=== PATIENT | female | born 1975 | race Caucasian/White ===

== ENCOUNTER 2017-07-22 11:11 | Inpatient (IN) | payer OTHER ==
[~2017-07-22] VITALS: Ht 175.3 cm; Wt 127.0 kg
[2017-07-22 11:20] VITALS: BP 146/77
[2017-07-22] MEDS ORDERED: VITAMIN C500 M1 ORAL (11:32)
[2017-07-22] MEDS ORDERED: ZYRTEC10 MG ORAL (11:32)
[2017-07-22] MEDS ORDERED: CENTRUM COMPLE1 EAC1 PO (11:32)
[2017-07-22] MEDS ORDERED: PRILOSEC OTC20 MG ORAL (11:32)
[2017-07-22] MEDS ORDERED: TURMERIC500 MG PO (11:32)
[2017-07-22] MEDS ORDERED: MUCINEX D ER T1 EACH PO (11:32)
[2017-07-22] MEDS ORDERED: METOPROLOL TART50 M1 ORAL (11:32)
[2017-07-22] MEDS ORDERED: ALEVE220 M2 PO (11:32)
[2017-07-22] MEDS ORDERED: LOPRESSOR25 M1 ORAL (11:32)
[2017-07-22] MEDS ORDERED: Unasyn 3gm Inj ONE (11:57)
[2017-07-22] MEDS ORDERED: Ampicillin/Sulbactam Sod 3 GM in NS 110 ML IVPB ONE (12:00)
[2017-07-22 12:02] LABS: BASOPHILS % (AUTO) 0.9 % (0.0-2.0); EOSINOPHILS % (AUTO) 2.6 % (0.0-3.0); LYMPHOCYTES % (AUTO) 21.4 % (20.0-45.0); MEAN CORPUSCULAR HGB CONC 32.9 G/DL (32.0-36.0); MEAN CORPUSCULAR VOLUME 88 FL (80-99); MEAN PLATELET VOLUME 6.1 FL (6.5-10.1); MONOCYTES % (AUTO) 5.8 % (1.0-10.0); NEUTROPHILS % (AUTO) 69.4 % (45.0-75.0); PLATELET COUNT 353 K/UL (150-450); RED BLOOD COUNT 4.53 M/UL (4.20-5.40); RED CELL DISTRIBUTION WIDTH 12.6 % (11.6-14.8); WHITE BLOOD COUNT 8.8 K/UL (4.8-10.8)
[2017-07-22 12:21] LABS: ANION GAP 8 mmol/L (5-15); CALCIUM 8.8 MG/DL (8.5-10.1); CARBON DIOXIDE 26 MMOL/L (21-32); CHLORIDE 106 MMOL/L (98-107); CREATININE 0.8 MG/DL (0.55-1.30); GLOMERULAR FILTRATION RATE > 60 mL/min (>60); SODIUM 140 MMOL/L (136-145)
--- NOTE | 2017-07-22 12:24 | Emergency Room Report ---
History of Present Illness General Chief Complaint: Skin Rash/Abscess Source: Patient Present Illness HPI 42-year-old female presents ED for evaluation. Patient referred by Dr. Lloyd. Patient has extensive hidradenitis in her bilateral axilla and lower abdomen. Has had this for many years. Patient has had prior surgery without improvement. Denies any fevers or chills. Denies pain. States he is noticing significant discharge. Denies any other associated symptoms Allergies: Coded Allergies: CELECOXIB (Verified Allergy, Unknown, 07/22/17) Patient History Past Medical History: HTN Past Surgical History: none Pertinent Family History: none Social History: Denies: smoking, alcohol use, drug use Now: No Immunizations: UTD Reviewed Nursing Documentation: PMH: Agreed, PSxH: Agreed Nursing Documentation-PMH Hx Cardiac Problems: Yes Hx Hypertension: Yes Hx Seizures: No - FIBROMYAGIA Review of Systems All Other Systems: negative except mentioned in HPI Physical Exam Vital Signs Date Time Temp Pulse Resp B/P (MAP) Pulse Ox O2 Delivery O2 Flow Rate FiO2 07/22/17 11:16 98.1 75 20 146/77 97 Room Air Sp02 EP Interpretation: reviewed, normal General Appearance: no apparent distress, alert, GCS 15, non-toxic Head: normocephalic, atraumatic Eyes: bilateral eye normal inspection, bilateral eye PERRL ENT: hearing grossly normal, normal pharynx, no angioedema, normal voice Neck: full range of motion, supple/symm/no masses Respiratory: chest non-tender, lungs clear, normal breath sounds, speaking full sentences Cardiovascular #1: regular rate, rhythm, no edema Cardiovascular #2: 2+ carotid (R), 2+ carotid (L), 2+ radial (R), 2+ radial (L) , 2+ dorsalis pedis (R), 2+ dorsalis pedis (L) Gastrointestinal: normal bowel sounds, non tender, soft, non-distended, no guarding, no rebound Rectal: deferred Genitourinary: normal inspection, no CVA tenderness Musculoskeletal: back normal, gait/station normal, normal range of motion, non- tender Neurologic: alert, oriented x3, responsive, motor strength/tone normal, sensory intact, speech normal Psychiatric: judgement/insight normal, memory normal, mood/affect normal, no suicidal/homicidal ideation Reflexes: 3+ bicep (R), 3+ bicep (L), 3+ tricep (R), 3+ tricep (L), 3+ knee (R) , 3+ knee (L) Skin: other - hidradenitis in bilateral axilla, lower abdomen Lymphatic: no adenopathy Medical Decision Making Diagnostic Impression: Primary Impression: Hidradenitis axillaris ER Course Hospital Course 42 yo F presents to ED c/o rash to bilateral axilla, lower abdomen Differential diagnoses include: Cellulitis, abscess, rash. Clinical course Patient placed on stretcher. After initial history and physical I ordered labs , blood Cx, EKG, CXR, wound cx labs reviewed - no leukocytosis, Hb/Hct stable, electrolytes ok EKG-normal sinus rhythm no acute changes interpreted by me Chest x-ray unremarkable antibiotics given. Dr. Lloyd consulted and aware. Case discussed with Dr Hopkins and he agreed to accept the patient to his service for further care and support Diagnosis - hidradenitis axillaris Patient admitted to floor in serious condition Labs Test 07/22/17 11:40 07/22/17 12:30 White Blood Count 8.8 K/UL (4.8-10.8) Red Blood Count 4.53 M/UL (4.20-5.40) Hemoglobin 13.1 G/DL (12.0-16.0) Hematocrit 39.9 % (37.0-47.0) Mean Corpuscular Volume 88 FL (80-99) Mean Corpuscular Hemoglobin 29.0 PG (27.0-31.0) Mean Corpuscular Hemoglobin Concent 32.9 G/DL (32.0-36.0) Red Cell Distribution Width 12.6 % (11.6-14.8) Platelet Count 353 K/UL (150-450) Mean Platelet Volume 6.1 FL (6.5-10.1) Neutrophils (%) (Auto) 69.4 % (45.0-75.0) Lymphocytes (%) (Auto) 21.4 % (20.0-45.0) Monocytes (%) (Auto) 5.8 % (1.0-10.0) Eosinophils (%) (Auto) 2.6 % (0.0-3.0) Basophils (%) (Auto) 0.9 % (0.0-2.0) Sodium Level 140 MMOL/L (136-145) Potassium Level 4.0 MMOL/L (3.5-5.1) Chloride Level 106 MMOL/L (98-107) Carbon Dioxide Level 26 MMOL/L (21-32) Anion Gap 8 mmol/L (5-15) Blood Urea Nitrogen 13 mg/dL (7-18) Creatinine 0.8 MG/DL (0.55-1.30) Estimat Glomerular Filtration Rate > 60 mL/min (>60) Glucose Level 104 MG/DL (74-106) Calcium Level 8.8 MG/DL (8.5-10.1) Total Bilirubin 0.2 MG/DL (0.2-1.0) Aspartate Amino Transf (AST/SGOT) 12 U/L (15-37) Alanine Aminotransferase (ALT/SGPT) 21 U/L (12-78) Alkaline Phosphatase 55 U/L (46-116) Creatine Kinase MB 1.7 NG/ML (0.0-3.6) Total Protein 8.1 G/DL (6.4-8.2) Albumin 3.9 G/DL (3.4-5.0) Globulin 4.2 g/dL Albumin/Globulin Ratio 0.9 (1.0-2.7) Urine Color Pale yellow Urine Appearance Clear Urine pH 6 (4.5-8.0) Urine Specific [place] 1.010 (1.005-1.035) Urine Protein Negative (NEGATIVE) Urine Glucose (UA) Negative (NEGATIVE) Urine Ketones Negative (NEGATIVE) Urine Occult Blood 4+ (NEGATIVE) Urine Nitrite Negative (NEGATIVE) Urine Bilirubin Negative (NEGATIVE) Urine Urobilinogen Normal MG/DL (0.0-1.0) Urine Leukocyte Esterase Negative (NEGATIVE) EKG Diagnostic Results Rate: normal Rhythm: NSR ST Segments: no acute changes ASA given to the pt in ED: No Rhythm Strip Diag. Results EP Interpretation: yes Rhythm: NSR, no PVC's, no ectopy Chest X-Ray Diagnostic Results Chest X-Ray Diagnostic Results : Chest X-Ray Ordered: Yes # of Views/Limited/Complete: 1 View Indication: Other - preop EP Interpretation: Yes Interpretation: no consolidation, no effusion, no pneumothorax, no acute cardiopulmonary disease Impression: No acute disease Electronically Signed by: Electronically signed by Ovidio Sinha MD Last Vital Signs Date Time Temp Pulse Resp B/P (MAP) Pulse Ox O2 Delivery O2 Flow Rate FiO2 07/22/17 11:20 98.1 78 20 146/77 97 Room Air Status: improved Disposition: ADMITTED INPATIENT Condition: Serious OVIDIO SINHA M.D. Jul 22, 2017 12:24
[2017-07-22 12:35] LABS: ALANINE AMINOTRANSFERASE 21 U/L (12-78); ALBUMIN/GLOBULIN RATIO 0.9 (1.0-2.7); ASPARTATE AMINO TRANSFERASE 12 U/L (15-37); CKMB 1.7 NG/ML (0.0-3.6); TOTAL PROTEIN 8.1 G/DL (6.4-8.2)
[2017-07-22 13:01] LABS: APPEARANCE,URINE CLEAR; KETONES,URINE NEGATIVE (NEGATIVE); LEUKOCYTE ESTERASE ,URINE NEGATIVE (NEGATIVE); NITRITE,URINE NEGATIVE (NEGATIVE); PH,URINE 6 (4.5-8.0); PROTEIN,URINE NEGATIVE (NEGATIVE); UROBILINOGEN,URINE NORMAL MG/DL (0.0-1.0)
[2017-07-22 13:25] LABS: BACTERIA,URINE OCCASIONAL /HPF; SQUAMOUS EPITHELIAL CELL,UR OCCASIONAL /LPF (NONE/OCC); WBC,URINE 0-2 /HPF (0 - 2)
[2017-07-22] MEDS ORDERED: Morphine Sulfate 4mg/ml Inj IVP PRN (13:30)
[2017-07-22] MEDS ORDERED: Miralax 17gm pkt ORAL PRN (13:30)
[2017-07-22] MEDS ORDERED: Zolpidem 5mg tab ORAL PRN (13:30)
[2017-07-22] MEDS ORDERED: Morphine Sulfate 2mg/ml Inj IVP PRN (13:30)
--- NOTE | 2017-07-22 14:17 | Diagnostic Imaging Report ---
Indication: Cough Technique: One view of the chest Comparison: none Findings: Lungs and pleural spaces are clear. Heart size is normal. Impression: No acute process
--- NOTE | 2017-07-22 14:35 | History and Physical ---
History of Present Illness General Date patient seen: Jul 22, 2017 Time patient seen: 14:34 Reason for Hospitalization: Abscess Present Illness HPI 42y/o female with pmh of hidradenitis suppurative, paroxysmal atrial tachycardia , HTN, GERD who presents with worsening b/l axillary lesions and lower abdominal lesions. Pt notes worsening pain/swelling/redness/drainage from b/l axillary and lower abd. She has had this for many years. She had prior surgery on R axilla abt 1 yr and 10mo ago w/o much success. She has tried antibiotics without much effect. She denies f/c, n/v, d/c, chest pain, SOB, abd pain, dysuria. She has had general anesthesia before without complications. Able to walk a few blocks or climb a flight of stairs w/o symptoms of chest pain, SOB. She follows up with a cardiology regarding her Atach and it controlled on metoprolol. She has undergone cardiac eval including ECHO which has been unremarkable. Allergies: Coded Allergies: CELECOXIB (Verified Allergy, Unknown, 07/22/17) Medication History Scheduled Cetirizine Hcl* (Zyrtec*), 10 MG ORAL DAILY, (Reported) Metoprolol Tartrate (Metoprolol Tartrate), 25 MG ORAL DAILY, (Reported) Metoprolol Tartrate* (Metoprolol Tartrate*), 50 MG ORAL QPM, (Reported) Omeprazole Magnesium (Prilosec Otc), 20 MG ORAL unknown , (Reported) Turmeric Root Extract (Turmeric), 500 MG PO TID, (Reported) Miscellaneous Medications Ascorbic Acid* (Vitamin C*), 500 MG ORAL, (Reported) Guaifenesin/Pseudoephedrne Hcl (Mucinex D Er Tablet), 1 EACH PO, (Reported) Multivitamin/Iron/Folic Acid (Centrum Complete Multivit Tab), 1 EACH PO, ( Reported) Naproxen Sodium (Aleve), 220 MG PO, (Reported) Patient History Healthcare decision maker Resuscitation status Full Code Advanced Directive on File No Past Medical/Surgical History Past Medical/Surgical History: (1) Paroxysmal atrial tachycardia (2) GERD (gastroesophageal reflux disease) (3) HTN (hypertension) (4) Hidradenitis suppurativa Family History Family History: FH: COPD (chronic obstructive pulmonary disease) FH: HTN (hypertension) FH: skin cancer Social History Social History: (1) No significant social history Review of Systems ROS Narrative CONSTITUTIONAL: No weight loss, fever, chills, weakness or fatigue. HEENT: Eyes: No visual loss, blurred vision, double vision or yellow sclerae. Ears, Nose, Throat: No hearing loss, sneezing, congestion, runny nose or sore throat. SKIN: No rash or itching. CARDIOVASCULAR: No chest pain, chest pressure or chest discomfort. No palpitations or edema. RESPIRATORY: No shortness of breath, cough or sputum. GASTROINTESTINAL: No anorexia, nausea, vomiting or diarrhea. No abdominal pain or blood. NEUROLOGICAL: No headache, dizziness, syncope, paralysis, ataxia, numbness or tingling in the extremities. No change in bowel or bladder control. MUSCULOSKELETAL: No muscle, back pain, joint pain or stiffness. HEMATOLOGIC: No anemia, bleeding or bruising. LYMPHATICS: No enlarged nodes. No history of splenectomy. PSYCHIATRIC: No history of depression or anxiety. ENDOCRINOLOGIC: No reports of sweating, cold or heat intolerance. No polyuria or polydipsia. ALLERGIES: No history of asthma, hives, eczema or rhinitis. Physical Exam Physical Exam Narrative General: alert, cooperative, no distress, appears stated age Head: normocephalic, without obvious abnormality, atraumatic Eyes: conjunctivae/corneas clear. PERRL, EOM's intact Throat: lips, mucosa, and tongue normal. MMM Neck: supple, symmetrical, trachea midline, and no JVD Lungs: clear to auscultation bilaterally Heart: regular rate and rhythm, S1, S2 normal, no murmur, click, rub or gallop Abdomen: soft, non-tender, non-distended, bowel sounds normal; no masses or organomegaly Extremities: extremities normal, atraumatic, no cyanosis or edema Pulses: 2+ and symmetric Skin: +HS lesions of b/l axilla and lower abd Neurologic: grossly normal, no focal deficits Last 24 Hour Vital Signs Date Time Temp Pulse Resp B/P (MAP) Pulse Ox O2 Delivery O2 Flow Rate FiO2 07/22/17 13:43 98.1 78 20 146/77 97 Room Air 07/22/17 11:20 98.1 78 20 146/77 97 Room Air 07/22/17 11:16 98.1 75 20 146/77 97 Room Air Intake and Output 07/22/17 07/23/17 19:00 07:00 Intake Total 50 ml Balance 50 ml Intake Oral 50 ml # Voids 1 Laboratory Tests Test 07/22/17 11:40 07/22/17 12:30 White Blood Count 8.8 K/UL (4.8-10.8) Red Blood Count 4.53 M/UL (4.20-5.40) Hemoglobin 13.1 G/DL (12.0-16.0) Hematocrit 39.9 % (37.0-47.0) Mean Corpuscular Volume 88 FL (80-99) Mean Corpuscular Hemoglobin 29.0 PG (27.0-31.0) Mean Corpuscular Hemoglobin Concent 32.9 G/DL (32.0-36.0) Red Cell Distribution Width 12.6 % (11.6-14.8) Platelet Count 353 K/UL (150-450) Mean Platelet Volume 6.1 FL (6.5-10.1) L Neutrophils (%) (Auto) 69.4 % (45.0-75.0) Lymphocytes (%) (Auto) 21.4 % (20.0-45.0) Monocytes (%) (Auto) 5.8 % (1.0-10.0) Eosinophils (%) (Auto) 2.6 % (0.0-3.0) Basophils (%) (Auto) 0.9 % (0.0-2.0) Sodium Level 140 MMOL/L (136-145) Potassium Level 4.0 MMOL/L (3.5-5.1) Chloride Level 106 MMOL/L (98-107) Carbon Dioxide Level 26 MMOL/L (21-32) Anion Gap 8 mmol/L (5-15) Blood Urea Nitrogen 13 mg/dL (7-18) Creatinine 0.8 MG/DL (0.55-1.30) Estimat Glomerular Filtration Rate > 60 mL/min (>60) Glucose Level 104 MG/DL (74-106) Calcium Level 8.8 MG/DL (8.5-10.1) Total Bilirubin 0.2 MG/DL (0.2-1.0) Aspartate Amino Transf (AST/SGOT) 12 U/L (15-37) L Alanine Aminotransferase (ALT/SGPT) 21 U/L (12-78) Alkaline Phosphatase 55 U/L (46-116) Creatine Kinase MB 1.7 NG/ML (0.0-3.6) Total Protein 8.1 G/DL (6.4-8.2) Albumin 3.9 G/DL (3.4-5.0) Globulin 4.2 g/dL Albumin/Globulin Ratio 0.9 (1.0-2.7) L Urine Color Pale yellow Urine Appearance Clear Urine pH 6 (4.5-8.0) Urine Specific [place] 1.010 (1.005-1.035) Urine Protein Negative (NEGATIVE) Urine Glucose (UA) Negative (NEGATIVE) Urine Ketones Negative (NEGATIVE) Urine Occult Blood 4+ (NEGATIVE) H Urine Nitrite Negative (NEGATIVE) Urine Bilirubin Negative (NEGATIVE) Urine Urobilinogen Normal MG/DL (0.0-1.0) Urine Leukocyte Esterase Negative (NEGATIVE) Urine RBC 5-10 /HPF (0 - 2) H Urine WBC 0-2 /HPF (0 - 2) Urine Squamous Epithelial Cells Occasional /LPF Urine Bacteria Occasional /HPF (NONE) Lactic Acid Level 1.10 mmol/L (0.66-2.22) Height (Feet): 5 Height (Inches): 9.00 Weight (Pounds): 270 Medications Current Medications Medications (Trade) Dose Ordered Sig/Sreedhar Route PRN Reason Start Time Stop Time Status Last Admin Dose Admin Acetaminophen (Tylenol) 650 mg Q4H PRN ORAL Mild Pain (Pain Scale 1-3) 07/22/17 13:30 08/21/17 13:29 Al Hydroxide/Mg Hydroxide (Mylanta II) 30 ml Q6H PRN ORAL dyspepsia 07/22/17 13:30 08/21/17 13:29 Dextrose (Dextrose 50%) STAT PRN IV Hypoglycemia 07/22/17 13:30 08/21/17 13:29 Dextrose/Sodium Chloride 1,000 ml @ 75 mls/hr [id number] IV 07/23/17 06:00 08/22/17 05:59 Diphenhydramine HCl (Benadryl) 25 mg Q6H PRN ORAL Itching/Pruritis 07/22/17 13:30 08/21/17 13:29 Docusate Sodium (Colace) 100 mg EVERY 12 HOURS ORAL 07/22/17 21:00 08/21/17 20:59 Metoprolol Tartrate (Lopressor) 25 mg DAILY ORAL 07/23/17 09:00 08/22/17 08:59 UNV Metoprolol Tartrate (Lopressor) 50 mg QPM ORAL 07/22/17 16:30 08/21/17 16:29 UNV Morphine Sulfate (Morphine Sulfate) 2 mg Q4H PRN IVP Moderate Pain (Pain Scale 4-6) 07/22/17 13:30 07/29/17 13:29 Morphine Sulfate (Morphine Sulfate) 4 mg Q4H PRN IVP Severe Pain (Pain Scale 7-10) 07/22/17 13:30 07/29/17 13:29 Pantoprazole (Protonix) 40 mg DAILY ORAL 07/23/17 09:00 08/22/17 08:59 UNV Polyethylene Glycol (Miralax) 17 gm HSPRN PRN ORAL Constipation 07/22/17 13:30 08/21/17 13:29 Zolpidem Tartrate (Ambien) 5 mg HSPRN PRN ORAL Insomnia 07/22/17 13:30 07/29/17 13:29 Assessment/Plan Problem List: (1) Hidradenitis suppurativa ICD Codes: L73.2 - Hidradenitis suppurativa SNOMED: 02906312 (2) Abscess ICD Codes: L02.91 - Cutaneous abscess, unspecified SNOMED: 522706238 (3) Paroxysmal atrial tachycardia ICD Codes: I47.1 - Supraventricular tachycardia SNOMED: 111983188 (4) HTN (hypertension) ICD Codes: I10 - Essential (primary) hypertension SNOMED: 85906407 (5) GERD (gastroesophageal reflux disease) ICD Codes: K21.9 - Gastro-esophageal reflux disease without esophagitis SNOMED: 571404419 Status: stable Assessment/Plan Admit inpt Plastic surgery consulted Check blood cultures IV antibiotics Wound care per surgery Pain control, bowel regimen Supportive care Cont home MTP, PPI If patient is required to have surgery, based on the patient's medical history, and other available ancillary data, the patient is a LOW risk for an INTERMEDIATE risk procedure. Per the most recent ACC/AHA guidelines, the patient does not need any further cardiopulmonary testing prior to the procedure and there do not appear to be any clear medical contraindications to proceeding with the proposed procedure. D/w pt/family, RN, SW/CM, surgery regarding mgmt and dispo Vasu Bowen M.D. Jul 22, 2017 14:35
[2017-07-22 15:27] VITALS: BP 155/82
[2017-07-22] MEDS: Metoprolol Tartrate 50mg tab ORAL SCH (17:07)
[2017-07-22] MEDS: ceFAZolin 1gm in D5W 55ml IVPB SCH (18:08)
[2017-07-22 20:27] VITALS: BP 104/58
[2017-07-22] MEDS: Docusate 100mg cap ORAL SCH (20:50)
[2017-07-22] MEDS ORDERED: ceFAZolin 1gm/50ml Premix 50 ML IV SCH (22:00)
[2017-07-22] MEDS ORDERED: ceFAZolin 1gm/50ml Premix 50 ML IV ONE (22:00)
[2017-07-23] VITALS (11 sets, daily range): BP systolic 119–159; BP diastolic 53–83
[2017-07-23] MEDS: ceFAZolin 1gm in D5W 55ml IVPB SCH ×3 (02:28→16:57)
[2017-07-23] MEDS: D5 1/2NS 1,000 ML IV SCH ×3 (05:39→21:24)
[2017-07-23] MEDS: Metoprolol 25mg tab ORAL SCH (08:00)
--- NOTE | 2017-07-23 08:47 | Pre-Procedure Note/Attestation ---
Pre-Procedure Note/Attestation Complete Prior to Procedure Planned Procedure: right Procedure Narrative: Right axillary and lower abdominal wall debridement with flap elevation Attestation I attest that I discussed the nature of the procedure; its benefits; risks and complications; and alternatives (and the risks and benefits of such alternatives ), prior to the procedure, with the patient (or the patient's legal manufacturer's service representative). I attest that, if there was a reasonable possibility of needing a blood transfusion, the patient (or the patient's legal manufacturer's service representative) was given the [facility] standardized written summary, pursuant to the [place] Blood Safety Act ([place] Health and Safety Code # 1645, as amended). I attest that I re-evaluated the patient just prior to the surgery and that there has been no change in the patient's H&P, except as documented below: CATIA DELGADO Jul 23, 2017 08:47
[2017-07-23] MEDS ORDERED: Bacitracin 50000 Units Vial ONE (08:58)
[2017-07-23] MEDS: Docusate 100mg cap ORAL SCH ×2 (08:58→21:21)
[2017-07-23] MEDS ORDERED: Propofol 200mg/20ml IV ONE (08:58)
[2017-07-23] MEDS ORDERED: NeoSporin Gu Irrig 1ml Amp IRRIG ONE (08:58)
[2017-07-23] MEDS ORDERED: Lidocaine 1% 10mg/ml/Epi 0.005mg/ml 30ml vial INJ ONE (08:59)
[2017-07-23] MEDS ORDERED: Metoclopramide 10mg/2ml Inj IVP PRN ×3 (09:00→14:15)
[2017-07-23] MEDS ORDERED: Rate Change PCA 1 Each MISC PRN (09:00)
[2017-07-23] MEDS ORDERED: PCA Education Pamphlet MISC ONE (09:15)
--- NOTE | 2017-07-23 09:40 | Cardiac Electrophysiology PN ---
Subjective Subjective Patient seen in preop area. Cardiology consult dictated. Stat echo at bedside reviewed Ef 65%. ECG completely normal. No CAD or CHF hx. DW Dr. Arenas and anesthesiologist. Cleared for scheduled surgery. [id number] Objective Last 24 Hour Vital Signs Date Time Temp Pulse Resp B/P (MAP) Pulse Ox O2 Delivery O2 Flow Rate FiO2 07/23/17 08:00 98.8 76 19 137/83 96 Room Air 07/23/17 08:00 76 137/83 07/23/17 04:00 98.4 70 18 119/65 96 Room Air 07/23/17 00:15 97.4 64 18 138/73 99 Room Air 07/22/17 20:27 98.5 83 19 104/58 93 Room Air 07/22/17 17:07 67 155/82 07/22/17 15:27 98.3 67 20 155/82 100 Room Air 07/22/17 13:43 98.1 78 20 146/77 97 Room Air 07/22/17 11:20 98.1 78 20 146/77 97 Room Air 07/22/17 11:16 98.1 75 20 146/77 97 Room Air Laboratory Tests Test 07/22/17 11:40 07/22/17 12:30 07/22/17 21:30 White Blood Count 8.8 K/UL (4.8-10.8) Red Blood Count 4.53 M/UL (4.20-5.40) Hemoglobin 13.1 G/DL (12.0-16.0) Hematocrit 39.9 % (37.0-47.0) Mean Corpuscular Volume 88 FL (80-99) Mean Corpuscular Hemoglobin 29.0 PG (27.0-31.0) Mean Corpuscular Hemoglobin Concent 32.9 G/DL (32.0-36.0) Red Cell Distribution Width 12.6 % (11.6-14.8) Platelet Count 353 K/UL (150-450) Mean Platelet Volume 6.1 FL (6.5-10.1) L Neutrophils (%) (Auto) 69.4 % (45.0-75.0) Lymphocytes (%) (Auto) 21.4 % (20.0-45.0) Monocytes (%) (Auto) 5.8 % (1.0-10.0) Eosinophils (%) (Auto) 2.6 % (0.0-3.0) Basophils (%) (Auto) 0.9 % (0.0-2.0) Sodium Level 140 MMOL/L (136-145) Potassium Level 4.0 MMOL/L (3.5-5.1) Chloride Level 106 MMOL/L (98-107) Carbon Dioxide Level 26 MMOL/L (21-32) Anion Gap 8 mmol/L (5-15) Blood Urea Nitrogen 13 mg/dL (7-18) Creatinine 0.8 MG/DL (0.55-1.30) Estimat Glomerular Filtration Rate > 60 mL/min (>60) Glucose Level 104 MG/DL (74-106) Calcium Level 8.8 MG/DL (8.5-10.1) Total Bilirubin 0.2 MG/DL (0.2-1.0) Aspartate Amino Transf (AST/SGOT) 12 U/L (15-37) L Alanine Aminotransferase (ALT/SGPT) 21 U/L (12-78) Alkaline Phosphatase 55 U/L (46-116) Creatine Kinase MB 1.7 NG/ML (0.0-3.6) Total Protein 8.1 G/DL (6.4-8.2) Albumin 3.9 G/DL (3.4-5.0) Globulin 4.2 g/dL Albumin/Globulin Ratio 0.9 (1.0-2.7) L Urine Color Pale yellow Urine Appearance Clear Urine pH 6 (4.5-8.0) Urine Specific [place] 1.010 (1.005-1.035) Urine Protein Negative (NEGATIVE) Urine Glucose (UA) Negative (NEGATIVE) Urine Ketones Negative (NEGATIVE) Urine Occult Blood 4+ (NEGATIVE) H Urine Nitrite Negative (NEGATIVE) Urine Bilirubin Negative (NEGATIVE) Urine Urobilinogen Normal MG/DL (0.0-1.0) Urine Leukocyte Esterase Negative (NEGATIVE) Urine RBC 5-10 /HPF (0 - 2) H Urine WBC 0-2 /HPF (0 - 2) Urine Squamous Epithelial Cells Occasional /LPF Urine Bacteria Occasional /HPF (NONE) Lactic Acid Level 1.10 mmol/L (0.66-2.22) Urine HCG, Qualitative Negative Microbiology Date/Time Source Procedure Growth Status 07/22/17 11:49 Wound Gram Stain Pending Resulted 07/22/17 11:49 Wound Wound Culture - Preliminary Resulted ALEJANDRA BUCHANAN Jul 23, 2017 09:40
[2017-07-23] MEDS: Heparin 5000 units/ml inj SUBQ SCH ×2 (10:00→21:23)
[2017-07-23] MEDS ORDERED: TransDerm Scop 1mg/72HR Patch TDERMAL ONE (12:11)
[2017-07-23] MEDS ORDERED: NS Irrig 1000ml ONE (12:45)
[2017-07-23] MEDS ORDERED: fentaNYL 100 mcg/2 mL IV ONE (12:45)
[2017-07-23] MEDS ORDERED: Succinylcholine 20mg/ml 10ml vial ONE (12:45)
[2017-07-23] MEDS ORDERED: LR 1000ml ONE (12:45)
[2017-07-23] MEDS ORDERED: Sterile Water Irrig 1000ml IRRIG ONE (12:45)
[2017-07-23] MEDS ORDERED: Ketorolac 30mg Inj ONE (12:45)
[2017-07-23] MEDS ORDERED: Zemuron 50mg/5ml Inj IV ONE (12:45)
[2017-07-23] MEDS ORDERED: Midazolam 2mg/2ml Inj ONE (12:45)
--- NOTE | 2017-07-23 13:46 | Anethesia Preoperative Eval ---
Anesthesia Pre-op PMH/ROS General Date of Evaluation: Jul 23, 2017 Time of Evaluation: 12:30 Anesthesiologist: Tony ASA Score: ASA 3 Mallampati Score Class I : Soft palate, uvula, fauces, pillars visible Class II: Soft palate, uvula, fauces visible Class III: Soft palate, base of uvula visible Class IV: Only hard plate visible Mallampati Classification: Class III Surgeon: Prema Diagnosis: Recurrent HS Surgical Procedure: Excision of R axillary and ant. abdominal wall HS Anesthesia History: PONV Family History: no anesthesia problems Allergies: Coded Allergies: CELECOXIB (Verified Allergy, Unknown, 07/22/17) Medications: see eMAR Past Medical History Cardiovascular: Reports: arrhythmia - Paroxysmal tachicardia, Denies: HTN, CAD, ID, valve dz, other Pulmonary: Reports: KIERAN, Denies: asthma, COPD, other Gastrointestinal/Genitourinary: Reports: GERD, Denies: CRI, ESRD, other Neurologic/Psychiatric: Reports: depression/anxiety, Denies: dementia, CVA, TIA, other Endocrine: Denies: DM, hypothyroidism, steroids, other HEENT: Denies: cataract (L), cataract (R), glaucoma, [place] (L), [place] (R), other Hematology/Immune: Denies: anemia, DVT, bleeding disorder, other Musculoskeletal/Integumentary: Denies: OA, RA, DJD, DDD, edema, other Other: obesity - morbid obesity PMH Narrative: as above PSxH Narrative: Cholecystectomy Anesthesia Pre-op Phys. Exam Physician Exam Last Vital Signs Date Time Temp Pulse Resp B/P (MAP) Pulse Ox O2 Delivery O2 Flow Rate FiO2 07/23/17 08:00 98.8 76 19 137/83 96 Room Air Constitutional: NAD Neurologic: CN 2-12 intact Cardiovascular: RRR, no M/R/G Respiratory: other - obesity Gastrointestinal: S/NT/ND Airway Exam Mallampati Score: Class III MO: full Neck: Short ROM: full Teeth: intact Dentures: no upper, no lower Anesthesia Pre-op A/P Labs see chart Urine Test Test 07/22/17 21:30 Urine HCG, Qualitative Negative Studies Pre-op Studies: echo - EF 55-60% Risk Assessment & Plan Assessment: ASA 3 Plan: GA with ETT PONV prevention Scopolamine path on. Status Change Before Surgery: No Pre-Antibiotics Drug: Ancef 2 gr. Given Within 1 Hr of Incision: Yes Time Given: 13:16 SAAD AGUERO M.D. Jul 23, 2017 13:46
[2017-07-23] MEDS ORDERED: Midazolam 2mg/2ml Inj IVP PRN (14:15)
[2017-07-23] MEDS ORDERED: Hydromorphone 0.5mg/0.5ml inj IVP PRN (14:15)
[2017-07-23] MEDS ORDERED: DiphenhydrAMINE 50mg/ml Inj IVP PRN (14:15)
[2017-07-23] MEDS ORDERED: Ketorolac 30mg Inj IV PRN (14:15)
[2017-07-23] MEDS ORDERED: Meperidine 50mg/ml Inj(FOR RIGORS ONLY) IV PRN (14:15)
--- NOTE | 2017-07-23 15:01 | Immediate Post-Op Evaluation ---
Immediate Post-Op Evalulation Immediate Post-Op Evalulation Procedure: Excision of R axillary and anterior wall HS Date of Evaluation: Jul 23, 2017 Time of Evaluation: 14:59 IV Fluids: 1000 Blood Products: none Estimated Blood Loss: 100 Urinary Output: 100 Blood Pressure Systolic: 144 Blood Pressure Diastolic: 62 Pulse Rate: 58 Respiratory Rate: 20 O2 Sat by Pulse Oximetry: 99 Temperature (Fahrenheit): 98.2 Pain Score (1-10): 2 Nausea: No Vomiting: No Complications none Patient Status: reacts, patent, extubated, none Hydration Status: adequate SAAD AGUERO M.D. Jul 23, 2017 15:01
[2017-07-23] MEDS: PCA HYDROmorphone 1mg/ml 30 ML IV PRN (15:16)
[2017-07-23] MEDS ORDERED: LR 1000ml 1,000 ML IVLG SCH (15:30)
--- NOTE | 2017-07-23 15:30 | Consultation ---
DATE OF CONSULTATION: 07/23/2017 ADMITTING PHYSICIAN: Heriberto Lara M.D. HISTORY OF PRESENT ILLNESS: This is a 42-year-old female admitted with right axillary and lower abdominal abscesses. She was started on IV antibiotics and I am seeing the patient for evaluation for surgical debridement and reconstruction. PAST MEDICAL HISTORY: Significant for morbid obesity and hidradenitis. Also significant for an arrhythmia. PAST SURGICAL HISTORY: Significant for previous attempts of axillary hidradenitis excision. PHYSICAL EXAMINATION: GENERAL: The patient is alert and oriented. CHEST: Clear to auscultation bilaterally. ABDOMEN: Reveals areas of multiple abscesses in the lower abdominal region and also in the axilla on the right side, she has multiple abscesses as well. ASSESSMENT AND PLAN: This is a 42-year-old female with advanced hidradenitis of both the axillae and lower abdomen. She will require a staged treatment with radical excision of both tissues with staged reconstruction. Again, the reason for the staging is to reduce the chance of postoperative wound infection given the amount of pus present at this point in time. The patient understands our plan and agrees to proceed. Jason Lloyd M.D. DR: Lia JOB#: [id number] CC:
--- NOTE | 2017-07-23 15:40 | Cardiology Report ---
APPROVED REPORT EXAM: Two-dimensional and M-mode echocardiogram with Doppler and color Doppler. INDICATION Arrhythmia M-Mode DIMENSIONS IVSd1.2 (0.7-1.1cm)Left Atrium (MM)3.7 (1.6-4.0cm) LVDd5.2 (3.5-5.6cm)Aortic Root3.0 (2.0-3.7cm) PWd1.4 (0.7-1.1cm)Aortic Cusp Exc.2.0 (1.5-2.0cm) LVDs2.9 (2.5-4.0cm) PWs2.0 cm Normal left ventricular chamber size, systolic function and wall motion. Left ventricular ejection fraction estimated to be 60-65 %. Mild left ventricular hypertrophy by 2-D. No evidence of pericardial effusion. Mild left atrial enlargement. Right cardiac chamber sizes are within normal limits. Normal appearing aortic, mitral, pulmonic and tricuspid valves. Mild mitral annulus and aortic root calcification. IVC at normal size with physiologic collapse. A color flow and spectral Doppler study was performed and revealed: Trace mitral regurgitation. Mitral inflow indicates normal left ventricular diastolic function. Trace tricuspid regurgitation. Tricuspid systolic velocities suggests peak right ventricular systolic pressure of 19 mmHg.
[2017-07-23] MEDS: Metoprolol Tartrate 50mg tab ORAL SCH (16:30)
--- NOTE | 2017-07-23 16:35 | Cardiology Report ---
APPROVED REPORT EKG Measurement Heart [id number] Normal sinus rhythm Normal ECG
--- NOTE | 2017-07-23 17:30 | Consultation ---
DATE OF CONSULTATION: 07/23/2017 CARDIOLOGY CONSULTATION CONSULTING PHYSICIAN: Jh Harrison M.D. REFERRING PHYSICIAN: Heriberto Lara M.D. REASON FOR CONSULTATION: Management of hypertension and supraventricular tachycardia as well as preoperative clearance prior to her hydradenitis surgery. HISTORY OF PRESENT ILLNESS: The patient is a very pleasant 42-year-old lady with history of hypertension, paroxysmal atrial tachycardia, and gastroesophageal reflux disease as well as history of hidradenitis suppurativa. The patient has been having worsening of her axillary lesions as were abdominal lesions with increasing swelling and draining abscess. The patient was admitted and a Cardiology consultation was obtained for further evaluation and management. The patient also had an episode of shortness of breath, but with cough that was resolved. At the time of my evaluation, the patient denies any chest pain, palpitation, or shortness of breath. Her nursing home manager has also done an echocardiogram in the past that was reportedly completely normal. REVIEW OF SYSTEMS: Review of systems was thoroughly performed and was negative other than what was mentioned in the history of present illness. PAST MEDICAL HISTORY: As mentioned above. FAMILY HISTORY: Noncontributory. SOCIAL HISTORY: She lives at home. Does not smoke or drink alcohol. PHYSICAL EXAMINATION: VITAL SIGNS: Blood pressure is 137/83, pulse 76, respirations 18, and temperature 98.8. HEAD AND NECK: No JVD. LUNGS: Clear. CARDIOVASCULAR: Regular S1 and S2 with no gallop or murmur. ABDOMEN: Soft and nontender. She has hydradenitis in the lower abdomen as well as the right axilla. EXTREMITIES: No pitting edema. Her EKG showed normal sinus rhythm. Complete normal electrocardiogram. LABORATORY DATA: Labs show white count of 8.8, hemoglobin 13.9, hematocrit of 40, platelet count of 353. Sodium 140, potassium is 4.0, BUN of 13, creatinine of 0.8, and glucose of 104. ASSESSMENT AND PLAN: 1. History of supraventricular tachycardia. The patient has never had an ablation. Denies any chest pain or shortness of breath. Currently in sinus rhythm. Stable on beta-briana. When I asked her how come she never had an ablation, she said that the episodes were infrequent and short lasting. 2. Hypertension, on metoprolol 25 mg in the morning and 50 mg at night. 3. Transient episode of shortness of breath and cough that was completely resolved. Her EKG is completely normal. The patient does not have any chest pain and no history of congestive heart failure. Her echocardiogram reportedly was normal. We will just repeat the echocardiogram at bedside. The patient should be able to tolerate the scheduled abdominal and axillary plastic surgery. We will continue to follow the patient clinically. Thank you very much, Dr. Lara, for allowing me to participate in the care of this patient. Please do not hesitate to contact me for any questions regarding my evaluation. Jh Harrison M.D. DR: Tim JOB#: [id number] CC:
[2017-07-23] MEDS: PCA shift volume MISC SCH (19:00)
--- NOTE | 2017-07-23 21:30 | Operative Note - Dictated ---
DATE OF OPERATION: 07/23/2017 PREOPERATIVE DIAGNOSIS: Right axillary and lower abdominal wall infection. POSTOPERATIVE DIAGNOSIS: Right axillary and lower abdominal wall infection. PROCEDURES: 1. Radical excision of right axillary tissue. 2. Elevation of the thoracodorsal artery flap for staged closure of right axillary wound. 3. Elevation of an anterior chest wall flap for delayed closure of right axillary wound. 4. Debridement of lower abdominal wall tissue. 5. Elevation of a superior abdominal wall flap for staged closure of abdominal wound. 6. Placement of an abdominal wound VAC. SURGEON: Jason Lloyd M.D. AMERICAN STUDIES PROFESSOR: Joselin Martin M.D. ANESTHESIA: General. COMPLICATIONS: None. EBL: 50 mL. DISPOSITION: Stable to the recovery room. INDICATIONS FOR SURGERY: This is a 42-year-old female who presented with a right axillary as well as lower abdominal infected tissue consistent with advanced hidradenitis. She had failed medical management and presented to the emergency room with drainage and pain from these areas. Upon evaluation by me, I felt that she was an appropriate candidate for a staged approach with radical excision of both areas with flap elevation and delayed closure of her wounds. She understands the risks and benefits of surgery and agrees to proceed. DETAILS OF THE OPERATION: The patient was brought to the operating room and laid in the supine position on the operating table. Her right axilla and chest as well as her abdomen were prepped and draped in a sterile and usual fashion. We first began by delineating the area of disease in the right axilla and then a corresponding thoracodorsal artery flap on the lateral chest wall was designed. A total of 10 mL of lidocaine with epinephrine was injected into the wound bed and a #10 blade was then used to make the axillary incision. The radical excision was then completed by dissecting with electrocautery all the way down to the level of the axillary fascia preserving all the vital structures. Once the radical excision was completed, the wound that resulted was 10 x 10 cm and was clearly not amenable to primary closure. We proceeded to elevate the thoracodorsal artery flap by making a U-shaped incision along the flap design. The incision was carried down to the platysmas muscle fashion and the flap was fully elevated based off of perforators of the thoracodorsal artery and it was noted that it cover most of the wound as it was transposed into the defect. However, we noted that additional closure was necessary as such in the anterior chest wall flap based off of perforators of the thoracoacromial artery was elevated off of the pectoralis muscle fascia with proximal and distal incisions made to fully mobilize the flap. With these flaps elevated we were able to close the defect temporarily without any tension. The wound was then opened and hemostasis was achieved. After pulse lavage irrigation and given the fact that there was infection present. I felt that it was not appropriate to perform definitive flap inset at this time. As such, the decision was made to put the flaps back in situ and bring the patient back within 48 hours to perform definitive flap inset. The wounds were covered with dressings and then we turned our attention to the lower abdominal region. There was a large area of infection present in the lower abdominal infraumbilical area. An elliptical type of incision was designed around this area of infection. A #10 blade was then used to make the incision all the way down across the lower abdomen as well as the superior aspect of the incision designed and then electrocautery was used to radically excise the specimen all the way down to the level of the rectus fascia. With the specimen removed on block, the defect that resulted was 45 x 20 cm and was clearly not amenable to primary closure. As such, the superior abdominal wall flaps had to be elevated based off of perforators of the bilateral superior epigastric artery to allow for a tension-free repair. Again, however, given the amount of pus that we encountered at the time of the radical excision, I felt that it was appropriate to delay the closure by partially closing the wound and placing an interval wound VAC and bring the patient back to the operating room for definitive wound closure in 48 hours. This was done following hemostasis and irrigation and the patient tolerated the procedure well. There was no complications. EBL was 50 mL and the patient was brought back to the operating room in 48 hours for definitive flap inset and closure of both the abdomen and right axillary wounds. Jason Lloyd M.D. DR: RADHA JOB#: [id number] CC:
--- NOTE | 2017-07-23 22:53 | General Progress Note ---
Assessment/Plan Problem List: (1) Abscess ICD Codes: L02.91 - Cutaneous abscess, unspecified SNOMED: 619377758 (2) Hidradenitis suppurativa ICD Codes: L73.2 - Hidradenitis suppurativa SNOMED: 27455818 (3) Paroxysmal atrial tachycardia ICD Codes: I47.1 - Supraventricular tachycardia SNOMED: 510826191 (4) HTN (hypertension) ICD Codes: I10 - Essential (primary) hypertension SNOMED: 37847076 (5) GERD (gastroesophageal reflux disease) ICD Codes: K21.9 - Gastro-esophageal reflux disease without esophagitis SNOMED: 610592015 Status: stable Assessment/Plan Appreciate plastic surgery rec's s/p Right axillary and lower abdominal wall debridement with flap elevation on 07/23/17 Plan for OR tomorrow for wound closures Cont iV abx F/u cultures Post operative recommendations include: - encourage mobilization/ambulation - encourage incentive spirometry to optimize pulmonary hygiene - DVT/GI prophylaxis as appropriate--SCDs, HSQ - pain control, supportive care, bowel regimen Appreciate cardiology rec's TTE unremarkable Cont home MTP Cont home PPI DVT ppx: SCDs, HSQ as pt is now moderate risk postop D/w pt/family, RN, SW/CM, surgery, cardiology regarding mgmt and dispo Subjective Date patient seen: Jul 23, 2017 Time patient seen: 16:00 ROS Limited/Unobtainable: No Constitutional: Reports: no symptoms HEENT: Reports: no symptoms Cardiovascular: Reports: no symptoms Respiratory: Reports: no symptoms Gastrointestinal/Abdominal: Reports: no symptoms Genitourinary: Reports: no symptoms Neurologic/Psychiatric: Reports: no symptoms Endocrine: Reports: no symptoms Hematologic/Lymphatic: Reports: no symptoms Allergies: Coded Allergies: CELECOXIB (Verified Allergy, Unknown, 07/22/17) All Systems: reviewed and negative except above Subjective No acute o/n events Right axillary and lower abdominal wall debridement with flap elevation today Pt w/ some mild SOB, cough, congestion this AM. She states she is requiring for URI symptoms over the past 1-2 weeks. Currently feeling better. Pain controlled , denies f/c, n/v, d/c, chest pain, palpitaitons Objective Last 24 Hour Vital Signs Date Time Temp Pulse Resp B/P (MAP) Pulse Ox O2 Delivery O2 Flow Rate FiO2 07/23/17 20:00 18 07/23/17 20:00 98.1 70 20 134/56 97 Room Air 07/23/17 17:42 18 07/23/17 16:30 64 119/52 07/23/17 16:12 18 07/23/17 16:00 98.0 56 18 129/55 100 Nasal Cannula 3.0 07/23/17 15:57 18 07/23/17 15:55 97.6 07/23/17 15:55 97.6 07/23/17 15:49 57 20 137/53 100 Simple Mask 8.0 07/23/17 15:42 20 07/23/17 15:36 57 20 137/53 100 Simple Mask 8.0 07/23/17 15:30 20 07/23/17 15:20 58 20 145/58 100 Simple Mask 8.0 07/23/17 15:16 20 07/23/17 15:05 62 20 159/60 100 Simple Mask 8.0 07/23/17 15:01 58 20 99 07/23/17 14:57 63 20 144/60 100 Simple Mask 8.0 07/23/17 14:52 98.0 61 20 146/66 100 Simple Mask 8.0 07/23/17 08:00 98.8 76 19 137/83 96 Room Air 07/23/17 08:00 76 137/83 07/23/17 04:00 98.4 70 18 119/65 96 Room Air 07/23/17 00:15 97.4 64 18 138/73 99 Room Air Intake and Output 07/23/17 07/24/17 19:00 07:00 Intake Total 1200 ml 240 ml Output Total 550 ml Balance 650 ml 240 ml Intake Oral 240 ml IV Total 1200 ml Output Urine Total 450 ml Estimated Blood Loss 100 ml # Voids 1 Height (Feet): 5 Height (Inches): 9.00 Weight (Pounds): 280 Objective General: alert, cooperative, no distress, appears stated age Head: normocephalic, without obvious abnormality, atraumatic Eyes: conjunctivae/corneas clear. PERRL, EOM's intact Throat: lips, mucosa, and tongue normal. MMM Neck: supple, symmetrical, trachea midline, and no JVD Lungs: clear to auscultation bilaterally Heart: regular rate and rhythm, S1, S2 normal, no murmur, click, rub or gallop Abdomen: soft, non-tender, non-distended, bowel sounds normal; no masses or organomegaly Extremities: extremities normal, atraumatic, no cyanosis or edema Pulses: 2+ and symmetric Skin: Dressing c/d/i Neurologic: grossly normal, no focal deficits Vasu Bowen M.D. Jul 23, 2017 22:53
[2017-07-24] VITALS: BP 119/55
[2017-07-24] MEDS: ceFAZolin 1gm in D5W 55ml IVPB SCH ×3 (00:49→18:28)
[2017-07-24 04:00] VITALS: BP 107/59
[2017-07-24] MEDS: PCA shift volume MISC SCH ×2 (07:00→19:29)
[2017-07-24 08:00] VITALS: BP 130/61
[2017-07-24] MEDS: Docusate 100mg cap ORAL SCH ×2 (08:56→20:39)
[2017-07-24] MEDS: Metoprolol 25mg tab ORAL SCH (08:57)
[2017-07-24] MEDS: Heparin 5000 units/ml inj SUBQ SCH ×2 (08:59→20:51)
[2017-07-24] MEDS: D5 1/2NS 1,000 ML IV SCH ×2 (09:00→20:40)
--- NOTE | 2017-07-24 10:08 | 48 Hour Post Anesthesia Eval ---
Post Anesthesia Evaluation Procedure: Excision of R axillary and anterior wall HS Date of Evaluation: Jul 24, 2017 Time of Evaluation: 10:07 Blood Pressure Systolic: 128 0: 72 Pulse Rate: 68 Respiratory Rate: 20 Temperature (Fahrenheit): 97.5 O2 Sat by Pulse Oximetry: 98 Airway: patent Nausea: No Vomiting: No Pain Intensity: 3 Hydration Status: adequate Cardiopulmonary Status: stable Mental Status/LOC: patient returned to baseline Follow-up Care/Observations: n/a Post-Anesthesia Complications: none Follow-up care needed: N/A SAAD AGUERO M.D. Jul 24, 2017 10:08
--- NOTE | 2017-07-24 10:24 | General Progress Note ---
Progress Note Progress Note Pt seen and examined. POD# 1and doing well. R axillary dressing intact and abdominal wound vac in place. To OR in AM for wound closures. Catia Delgado M.D. CATIA DELGADO Jul 24, 2017 10:24
--- NOTE | 2017-07-24 10:37 | Cardiac Electrophysiology PN ---
Assessment/Plan Assessment/Plan 1. History of supraventricular tachycardia. The patient has never had an ablation. Denies any chest pain or shortness of breath. Continue Lopressor but change to 50 bid. 2. Hypertension, Change metoprolol to 50 bid 3. Transient episode of shortness of breath and cough that was completely resolved. Her EKG is completely normal. The patient does not have any chest pain and no history of congestive heart failure. Her echocardiogram was normal. Stable to under go stage 2 of abdominal and axillary plastic surgery tomorrow. DW Dr Lloyd the plastic surgeon.. Subjective Subjective Tolerated the surgery well. No perioperative cardiac issues. [place] few seconds of transient tachy that resolved spontaneously. Objective Last 24 Hour Vital Signs Date Time Temp Pulse Resp B/P (MAP) Pulse Ox O2 Delivery O2 Flow Rate FiO2 07/24/17 10:08 68 20 98 07/24/17 08:57 79 130/61 07/24/17 08:00 17 07/24/17 08:00 99.0 79 17 130/61 96 Room Air 07/24/17 04:00 97.5 76 20 107/59 97 Room Air 07/24/17 04:00 18 07/24/17 00:00 98.6 74 20 119/55 97 Room Air 07/24/17 00:00 18 07/23/17 20:00 18 07/23/17 20:00 98.1 70 20 134/56 97 Room Air 07/23/17 17:42 18 07/23/17 16:30 64 119/52 07/23/17 16:12 18 07/23/17 16:00 98.0 56 18 129/55 100 Nasal Cannula 3.0 07/23/17 15:57 18 07/23/17 15:55 97.6 07/23/17 15:55 97.6 07/23/17 15:49 57 20 137/53 100 Simple Mask 8.0 07/23/17 15:42 20 07/23/17 15:36 57 20 137/53 100 Simple Mask 8.0 07/23/17 15:30 20 07/23/17 15:20 58 20 145/58 100 Simple Mask 8.0 07/23/17 15:16 20 07/23/17 15:05 62 20 159/60 100 Simple Mask 8.0 07/23/17 15:01 58 20 99 07/23/17 14:57 63 20 144/60 100 Simple Mask 8.0 07/23/17 14:52 98.0 61 20 146/66 100 Simple Mask 8.0 Microbiology Date/Time Source Procedure Growth Status 07/22/17 12:30 Blood Blood Culture - Preliminary NO GROWTH AFTER 24 HOURS Resulted 07/22/17 12:30 Blood Blood Culture - Preliminary NO GROWTH AFTER 24 HOURS Resulted 07/22/17 11:49 Wound Gram Stain - Final Resulted 07/22/17 11:49 Wound Culture - Preliminary Staphylococcus Aureus Staphylococcus Sp Coag Neg Resulted Objective HEAD AND NECK: No JVD. LUNGS: Clear. CARDIOVASCULAR: Regular S1 and S2 with no gallop or murmur. ABDOMEN: Soft and nontender. Wound VAc in the lower abdomen at site of surgery. EXTREMITIES: No pitting edema.Right arm pit s/p Surgery ALEJANDRA BUCHANAN Jul 24, 2017 10:37
[2017-07-24 12:00] VITALS: BP 124/67
--- NOTE | 2017-07-24 13:00 | Anethesia Preoperative Eval ---
Anesthesia Pre-op PMH/ROS General Date of Evaluation: Jul 24, 2017 Anesthesiologist: Bird ASA Score: ASA 3 Mallampati Score Class I : Soft palate, uvula, fauces, pillars visible Class II: Soft palate, uvula, fauces visible Class III: Soft palate, base of uvula visible Class IV: Only hard plate visible Mallampati Classification: Class III Surgeon: Prema Diagnosis: REcurrent HS Surgical Procedure: Bilateral groin debriedment and flap closure Anesthesia History: none Family History: no anesthesia problems Allergies: Coded Allergies: CELECOXIB (Verified Allergy, Unknown, 07/22/17) Medications: see eMAR Past Medical History Cardiovascular: Denies: HTN, CAD, [place], valve dz, arrhythmia, other Pulmonary: Reports: KIERAN, Denies: asthma, COPD, other Gastrointestinal/Genitourinary: Reports: GERD, Denies: CRI, ESRD, other Neurologic/Psychiatric: Reports: depression/anxiety, Denies: dementia, CVA, TIA, other Endocrine: Denies: DM, hypothyroidism, steroids, other HEENT: Denies: cataract (L), cataract (R), glaucoma, SH[place]K (L), SHUNG[place]K (R), other Hematology/Immune: Reports: anemia - chronic, Denies: DVT, bleeding disorder, other Musculoskeletal/Integumentary: Reports: other - fibromyalgia, recurrent HS, Denies: OA, RA, DJD, DDD, edema Other: obesity - morbid PSxH Narrative: lap ana, lithotrispy, bilateral groin debriedment Anesthesia Pre-op Phys. Exam Physician Exam Last Vital Signs Date Time Temp Pulse Resp B/P (MAP) Pulse Ox O2 Delivery O2 Flow Rate FiO2 07/24/17 12:00 98.6 78 18 124/67 97 Room Air 07/23/17 16:00 3.0 Constitutional: NAD Cardiovascular: RRR Respiratory: other - distant breath sounds bilaterally Airway Exam Mallampati Score: Class III MO: full Neck: obese, short ROM: full Anesthesia Pre-op A/P Labs seen chart Risk Assessment & Plan Assessment: ASA III Plan: GA Status Change Before Surgery: No Pre-Antibiotics Drug: TANYA APONTE M.D. Jul 24, 2017 13:00
[2017-07-24 16:00] VITALS: BP 157/76
[2017-07-24] MEDS: PCA HYDROmorphone 1mg/ml 30 ML IV PRN (16:50)
[2017-07-24] MEDS: guaiFENesin ER 600mg tab ORAL SCH (19:36)
[2017-07-24] MEDS: Metoprolol Tartrate 50mg tab ORAL SCH (20:41)
[2017-07-24] MEDS: DiphenhydrAMINE 50mg/ml Inj IVP PRN (20:42)
[2017-07-24 20:50] VITALS: BP 151/76
--- NOTE | 2017-07-24 22:30 | General Progress Note ---
Assessment/Plan Problem List: (1) Abscess ICD Codes: L02.91 - Cutaneous abscess, unspecified SNOMED: 793055523 (2) Hidradenitis suppurativa ICD Codes: L73.2 - Hidradenitis suppurativa SNOMED: 62991010 (3) Paroxysmal atrial tachycardia ICD Codes: I47.1 - Supraventricular tachycardia SNOMED: 359461192 (4) HTN (hypertension) ICD Codes: I10 - Essential (primary) hypertension SNOMED: 83522190 (5) GERD (gastroesophageal reflux disease) ICD Codes: K21.9 - Gastro-esophageal reflux disease without esophagitis SNOMED: 958632824 Status: stable Assessment/Plan Appreciate plastic surgery rec's s/p right axillary and lower abdominal wall debridement with flap elevation on 07/23/17 Plan for OR tomorrow for wound closures Cont iV abx F/u cultures Post operative recommendations include: - encourage mobilization/ambulation - encourage incentive spirometry to optimize pulmonary hygiene - DVT/GI prophylaxis as appropriate--SCDs, HSQ - pain control, supportive care, bowel regimen Appreciate cardiology rec's TTE unremarkable Cont home MTP Cont home PPI DVT ppx: SCDs, HSQ as pt is now moderate risk postop A total of 32min of extra time was spent in addition to normal encounter time for care/coordination and counseling. D/w pt/family, RN, SW/CM, surgery, cardiology regarding mgmt and dispo Subjective Date patient seen: Jul 24, 2017 Time patient seen: 16:23 ROS Limited/Unobtainable: No Constitutional: Reports: no symptoms HEENT: Reports: no symptoms Cardiovascular: Reports: no symptoms Respiratory: Reports: cough Gastrointestinal/Abdominal: Reports: no symptoms Genitourinary: Reports: no symptoms Neurologic/Psychiatric: Reports: no symptoms Hematologic/Lymphatic: Reports: no symptoms Allergies: Coded Allergies: CELECOXIB (Verified Allergy, Unknown, 07/22/17) All Systems: reviewed and negative except above Subjective No acute o/n events s/p right axillary and lower abdominal wall debridement with flap elevation yesterday POD#1 Pt w/ some mild SOB, cough, congestion. She states she is requiring for URI symptoms over the past 1-2 weeks. Currently feeling better. Pain controlled, denies f/c, n/v, d/c, chest pain, palpitaitons Objective Last 24 Hour Vital Signs Date Time Temp Pulse Resp B/P (MAP) Pulse Ox O2 Delivery O2 Flow Rate FiO2 07/24/17 21:40 100.5 07/24/17 20:50 101.2 92 18 151/76 94 Room Air 07/24/17 20:41 85 151/76 07/24/17 20:00 18 07/24/17 16:00 100.0 85 18 157/76 98 Room Air 07/24/17 16:00 18 07/24/17 12:00 98.6 78 18 124/67 97 Room Air 07/24/17 12:00 18 07/24/17 10:08 68 20 98 07/24/17 08:57 79 130/61 07/24/17 08:00 17 07/24/17 08:00 99.0 79 17 130/61 96 Room Air 07/24/17 04:00 97.5 76 20 107/59 97 Room Air 07/24/17 04:00 18 07/24/17 00:00 98.6 74 20 119/55 97 Room Air 07/24/17 00:00 18 Intake and Output 07/24/17 07/25/17 19:00 07:00 Intake Total 1875 ml Output Total 1800 ml 25 ml Balance 75 ml -25 ml Intake Oral 750 ml IV Total 1125 ml Output Urine Total 1800 ml Drainage Total 25 ml Height (Feet): 5 Height (Inches): 9.00 Weight (Pounds): 280 Objective General: alert, cooperative, no distress, appears stated age Head: normocephalic, without obvious abnormality, atraumatic Eyes: conjunctivae/corneas clear. PERRL, EOM's intact Throat: lips, mucosa, and tongue normal. MMM Neck: supple, symmetrical, trachea midline, and no JVD Lungs: clear to auscultation bilaterally Heart: regular rate and rhythm, S1, S2 normal, no murmur, click, rub or gallop Abdomen: soft, non-tender, non-distended, bowel sounds normal; no masses or organomegaly Extremities: extremities normal, atraumatic, no cyanosis or edema Pulses: 2+ and symmetric Skin: Dressing c/d/i Neurologic: grossly normal, no focal deficits Vasu Bowen M.D. Jul 24, 2017 22:30
[2017-07-25] VITALS (15 sets, daily range): BP systolic 118–147; BP diastolic 50–80
[2017-07-25] MEDS: ceFAZolin 1gm in D5W 55ml IVPB SCH ×3 (02:15→17:45)
[2017-07-25] MEDS: PCA shift volume MISC SCH ×2 (07:05→19:20)
[2017-07-25] MEDS: Heparin 5000 units/ml inj SUBQ SCH ×2 (08:29→20:40)
[2017-07-25] MEDS: Docusate 100mg cap ORAL SCH ×2 (08:29→20:39)
[2017-07-25] MEDS: guaiFENesin ER 600mg tab ORAL SCH ×2 (08:29→17:45)
[2017-07-25] MEDS: Metoprolol Tartrate 50mg tab ORAL SCH ×2 (08:36→20:39)
[2017-07-25] MEDS ORDERED: TransDerm Scop 1mg/72HR Patch TDERMAL ONE (08:50)
--- NOTE | 2017-07-25 08:57 | Pre-Procedure Note/Attestation ---
Pre-Procedure Note/Attestation Complete Prior to Procedure Planned Procedure: right Procedure Narrative: Closure of right axillary wound and abdominal wound closure Attestation I attest that I discussed the nature of the procedure; its benefits; risks and complications; and alternatives (and the risks and benefits of such alternatives ), prior to the procedure, with the patient (or the patient's legal patient admitting representative). I attest that, if there was a reasonable possibility of needing a blood transfusion, the patient (or the patient's legal patient admitting representative) was given the [facility] standardized written summary, pursuant to the [place] Blood Safety Act ([place] Health and Safety Code # 1645, as amended). I attest that I re-evaluated the patient just prior to the surgery and that there has been no change in the patient's H&P, except as documented below: CATIA DELGADO Jul 25, 2017 08:57
[2017-07-25] MEDS ORDERED: Metoclopramide 10mg/2ml Inj IVP PRN ×2 (09:00→10:45)
[2017-07-25] MEDS ORDERED: Bacitracin 50000 Units Vial ONE (09:09)
[2017-07-25] MEDS ORDERED: NeoSporin Gu Irrig 1ml Amp IRRIG ONE (09:09)
[2017-07-25] MEDS ORDERED: Midazolam 2mg/2ml Inj ONE (10:30)
[2017-07-25] MEDS ORDERED: Neostigmine 1mg/ml 10ml Inj ONE (10:30)
[2017-07-25] MEDS ORDERED: LR 1000ml ONE (10:30)
[2017-07-25] MEDS ORDERED: Morphine Sulfate 10mg/ml Inj ONE (10:30)
[2017-07-25] MEDS ORDERED: Glycopyrrolate 0.2mg/ml 1ml Vial ONE (10:30)
[2017-07-25] MEDS ORDERED: Ketorolac 30mg Inj ONE (10:30)
[2017-07-25] MEDS ORDERED: Nimbex 2mg/ml Inj 10ML IVP ONE (10:30)
[2017-07-25] MEDS ORDERED: Dexamethasone 4mg/ml vial ONE (10:30)
[2017-07-25] MEDS ORDERED: Propofol 200mg/20ml IV ONE (10:30)
[2017-07-25] MEDS ORDERED: fentaNYL 100 mcg/2 mL IV ONE (10:30)
[2017-07-25] MEDS ORDERED: Hydromorphone 0.5mg/0.5ml inj IVP PRN (10:45)
[2017-07-25] MEDS ORDERED: DiphenhydrAMINE 50mg/ml Inj IVP PRN (10:45)
[2017-07-25] MEDS ORDERED: Midazolam 2mg/2ml Inj IVP PRN (10:45)
[2017-07-25] MEDS ORDERED: Ketorolac 30mg Inj IV PRN (10:45)
[2017-07-25] MEDS ORDERED: LR 1000ml 1,000 ML IVLG SCH (10:45)
[2017-07-25] MEDS ORDERED: Meperidine 50mg/ml Inj(FOR RIGORS ONLY) IV PRN ×2 (10:45)
[2017-07-25] MEDS: D5 1/2NS 1,000 ML IV SCH (11:20)
--- NOTE | 2017-07-25 11:46 | Operative Note - PDOC ---
Operative Note Operative Note Procedure: Closure of right axillary and abdominal wounds Post-op Diagnosis: same as pre-op Surgeon: Veronica Brick Wheeler: Prema Specimen: yes Complications: none Condition: stable Estimated Blood Loss: minimal Drains: PATRICIA Implant(s) used?: No CATIA DELGADO Jul 25, 2017 11:46
--- NOTE | 2017-07-25 12:06 | Immediate Post-Op Evaluation ---
Immediate Post-Op Evalulation Immediate Post-Op Evalulation Procedure: Revision and closure of anterior abdominal and R axillary wounds Date of Evaluation: Jul 25, 2017 Time of Evaluation: 12:05 IV Fluids: 1200 Blood Products: none Estimated Blood Loss: 50 Urinary Output: 500 Blood Pressure Systolic: 145 Blood Pressure Diastolic: 74 Pulse Rate: 72 Respiratory Rate: 20 O2 Sat by Pulse Oximetry: 98 Temperature (Fahrenheit): 98.6 Pain Score (1-10): 2 Nausea: No Vomiting: No Complications none Patient Status: reacts, patent, extubated, none Hydration Status: adequate SAAD AGUERO M.D. Jul 25, 2017 12:06
[2017-07-25] MEDS ORDERED: Rate Change PCA 1 Each MISC PRN (12:15)
[2017-07-25] MEDS: PCA HYDROmorphone 1mg/ml 30 ML IV PRN (12:46)
[2017-07-25] MEDS ORDERED: PCA Education Pamphlet MISC ONE (14:00)
--- NOTE | 2017-07-25 14:45 | 48 Hour Post Anesthesia Eval ---
Post Anesthesia Evaluation Procedure: Revision and closure of anterior abdominal and R axillary wounds Date of Evaluation: Jul 25, 2017 Time of Evaluation: 14:45 Blood Pressure Systolic: 134 0: 50 Pulse Rate: 61 Respiratory Rate: 16 Temperature (Fahrenheit): 99 O2 Sat by Pulse Oximetry: 98 Airway: patent Nausea: No Vomiting: No Pain Intensity: 2 Hydration Status: adequate Cardiopulmonary Status: Stable Mental Status/LOC: patient returned to baseline Follow-up Care/Observations: 0 Post-Anesthesia Complications: 0 Follow-up care needed: N/A Ezequiel Stuart MD Jul 25, 2017 14:45
--- NOTE | 2017-07-25 15:27 | Cardiac Electrophysiology PN ---
Assessment/Plan Assessment/Plan 1. History of supraventricular tachycardia. Denies any chest pain or shortness of breath. Continue Lopressor 50 bid. 2. Hypertension, On Lopressor 50 bid 3. Transient episode of shortness of breath and cough that was completely resolved. EKG is completely normal. echocardiogram was normal. Subjective Subjective Tolerated the second surgery today without any cardiac issues. Objective Last 24 Hour Vital Signs Date Time Temp Pulse Resp B/P (MAP) Pulse Ox O2 Delivery O2 Flow Rate FiO2 07/25/17 14:45 61 16 98 07/25/17 13:30 17 07/25/17 13:15 16 07/25/17 13:10 98.0 61 13 134/50 99 Nasal Cannula 3.0 07/25/17 13:00 98.0 07/25/17 13:00 98.0 07/25/17 13:00 60 15 144/58 99 Nasal Cannula 3.0 07/25/17 13:00 15 07/25/17 12:46 14 07/25/17 12:45 58 14 136/58 99 Simple Mask 6.0 07/25/17 12:35 63 17 144/58 99 Simple Mask 6.0 07/25/17 12:30 61 15 147/61 99 Simple Mask 6.0 07/25/17 12:15 63 16 146/59 98 Simple Mask 6.0 07/25/17 12:10 65 16 144/58 98 Simple Mask 6.0 07/25/17 12:06 72 20 98 07/25/17 12:05 65 17 134/57 98 Simple Mask 6.0 07/25/17 12:00 71 18 146/59 97 Simple Mask 6.0 07/25/17 11:57 98.8 72 18 145/61 97 Simple Mask 6.0 07/25/17 08:36 78 120/64 07/25/17 08:00 99.4 78 18 120/67 94 Room Air 07/25/17 08:00 17 07/25/17 04:59 99.8 79 18 118/72 94 Room Air 07/25/17 04:00 18 07/25/17 00:34 98.8 87 20 134/64 95 Room Air 07/25/17 00:00 18 07/24/17 21:40 100.5 07/24/17 20:50 101.2 92 18 151/76 94 Room Air 07/24/17 20:41 85 151/76 07/24/17 20:00 18 07/24/17 16:00 100.0 85 18 157/76 98 Room Air 07/24/17 16:00 18 Intake and Output 07/25/17 07/26/17 19:00 07:00 Intake Total 1500 ml Output Total 620 ml Balance 880 ml IV Total 1500 ml Output Urine Total 500 ml Drainage Total 70 ml Estimated Blood Loss 50 ml Objective HEAD AND NECK: No JVD. LUNGS: Clear. CARDIOVASCULAR: Regular S1 and S2 with no gallop or murmur. ABDOMEN: Soft and nontender. Lower abdomen s/P surgery. EXTREMITIES: No pitting edema.Right arm pit s/p Surgery with drain ALEJANDRA BUCHANAN Jul 25, 2017 15:27
--- NOTE | 2017-07-25 18:54 | General Progress Note ---
Assessment/Plan Problem List: (1) Abscess ICD Codes: L02.91 - Cutaneous abscess, unspecified SNOMED: 275936241 (2) Hidradenitis suppurativa ICD Codes: L73.2 - Hidradenitis suppurativa SNOMED: 60763965 (3) Paroxysmal atrial tachycardia ICD Codes: I47.1 - Supraventricular tachycardia SNOMED: 288083850 (4) HTN (hypertension) ICD Codes: I10 - Essential (primary) hypertension SNOMED: 49499268 (5) GERD (gastroesophageal reflux disease) ICD Codes: K21.9 - Gastro-esophageal reflux disease without esophagitis SNOMED: 836466023 Status: stable Assessment/Plan Appreciate plastic surgery rec's s/p right axillary and lower abdominal wall debridement with flap elevation on 07/23/17 s/p closure of right axillary and abdominal wounds on 07/25/17 Cont iV abx F/u cultures Post operative recommendations include: - encourage mobilization/ambulation - encourage incentive spirometry to optimize pulmonary hygiene - DVT/GI prophylaxis as appropriate--SCDs, HSQ - pain control, supportive care, bowel regimen Appreciate cardiology rec's TTE unremarkable Cont home MTP Cont home PPI DVT ppx: SCDs, HSQ as pt is now moderate risk postop A total of 33min of extra time was spent in addition to normal encounter time for care/coordination and counseling. D/w pt/family, RN, SW/CM, surgery, cardiology regarding mgmt and dispo Subjective Date patient seen: Jul 25, 2017 Time patient seen: 13:00 ROS Limited/Unobtainable: No Constitutional: Reports: no symptoms HEENT: Reports: no symptoms Cardiovascular: Reports: no symptoms Respiratory: Reports: cough Genitourinary: Reports: no symptoms Neurologic/Psychiatric: Reports: no symptoms Endocrine: Reports: no symptoms Hematologic/Lymphatic: Reports: no symptoms Allergies: Coded Allergies: CELECOXIB (Verified Allergy, Unknown, 07/22/17) All Systems: reviewed and negative except above Subjective No acute o/n events s/p right axillary and lower abdominal wall debridement with flap elevation POD# 2 s/p closure of right axillary and abdominal wounds today Pt doing well. Not as much as nausea as last time.Pain controlled, denies f/c, d /c, chest pain, palpitations Objective Last 24 Hour Vital Signs Date Time Temp Pulse Resp B/P (MAP) Pulse Ox O2 Delivery O2 Flow Rate FiO2 07/25/17 16:00 18 07/25/17 16:00 98.1 102 18 135/80 99 Room Air 07/25/17 15:25 Nasal Cannula 3.0 32 07/25/17 15:25 93 Nasal Cannula 3.0 32 07/25/17 14:45 61 16 98 07/25/17 13:30 17 07/25/17 13:15 16 07/25/17 13:10 98.0 61 13 134/50 99 Nasal Cannula 3.0 07/25/17 13:00 98.0 07/25/17 13:00 98.0 07/25/17 13:00 60 15 144/58 99 Nasal Cannula 3.0 07/25/17 13:00 15 07/25/17 12:46 14 07/25/17 12:45 58 14 136/58 99 Simple Mask 6.0 07/25/17 12:35 63 17 144/58 99 Simple Mask 6.0 07/25/17 12:30 61 15 147/61 99 Simple Mask 6.0 07/25/17 12:15 63 16 146/59 98 Simple Mask 6.0 07/25/17 12:10 65 16 144/58 98 Simple Mask 6.0 07/25/17 12:06 72 20 98 07/25/17 12:05 65 17 134/57 98 Simple Mask 6.0 07/25/17 12:00 71 18 146/59 97 Simple Mask 6.0 07/25/17 11:57 98.8 72 18 145/61 97 Simple Mask 6.0 07/25/17 08:36 78 120/64 07/25/17 08:00 99.4 78 18 120/67 94 Room Air 07/25/17 08:00 17 07/25/17 04:59 99.8 79 18 118/72 94 Room Air 07/25/17 04:00 18 07/25/17 00:34 98.8 87 20 134/64 95 Room Air 07/25/17 00:00 18 07/24/17 21:40 100.5 07/24/17 20:50 101.2 92 18 151/76 94 Room Air 07/24/17 20:41 85 151/76 07/24/17 20:00 18 Intake and Output 07/25/17 07/26/17 19:00 07:00 Intake Total 1740 ml Output Total 2020 ml Balance -280 ml Intake Oral 240 ml IV Total 1500 ml Output Urine Total 1900 ml Drainage Total 70 ml Estimated Blood Loss 50 ml Height (Feet): 5 Height (Inches): 9.00 Weight (Pounds): 280 Objective General: alert, cooperative, no distress, appears stated age Head: normocephalic, without obvious abnormality, atraumatic Eyes: conjunctivae/corneas clear. PERRL, EOM's intact Throat: lips, mucosa, and tongue normal. MMM Neck: supple, symmetrical, trachea midline, and no JVD Lungs: clear to auscultation bilaterally Heart: regular rate and rhythm, S1, S2 normal, no murmur, click, rub or gallop Abdomen: soft, non-tender, non-distended, bowel sounds normal; no masses or organomegaly Extremities: extremities normal, atraumatic, no cyanosis or edema Pulses: 2+ and symmetric Skin: Dressing c/d/i Neurologic: grossly normal, no focal deficits Vasu Bowen M.D. Jul 25, 2017 18:54
[2017-07-25] MEDS: DiphenhydrAMINE 50mg/ml Inj IVP PRN (20:38)
[2017-07-25] MEDS ORDERED: D5 1/2NS 1000ml IV ONE (21:03)
[2017-07-25] MEDS ORDERED: Tubing IV Secondary IV ONE (21:03)
--- NOTE | 2017-07-25 22:02 | Operative Note - Dictated ---
DATE OF OPERATION: 07/25/2017 PREOPERATIVE DIAGNOSES: 1. Open abdominal wound. 2. Open right axillary wound. POSTOPERATIVE DIAGNOSES: 1. Open abdominal wound. 2. Open right axillary wound. PROCEDURES: 1. Preparation of lower abdominal wound for flap closure. 2. Upper abdominal flap advancement closure of lower abdominal wound. 3. Preparation of right axillary wound for flap closure. 4. Thoracodorsal artery flap readvancement for closure of right axillary wound. SURGEON: Jason Lloyd M.D. POWER GRADER OPERATOR: Ricardo Hinds M.D. ANESTHESIA: General. DRAINS: Included two JPs in the abdomen, one in the right axilla. DISPOSITION: Stable to the recovery room. INDICATIONS FOR SURGERY: This is a 42-year-old female, who is now 48 hours status post radical excision of lower abdominal wound infected tissue as well as radical excision of infected right axillary tissue. She undergone this procedure at that time with flap elevation. She undergone local wound care to those areas as well as wound VAC treatment of the lower abdominal wound and is now ready for definitive wound closure. She understood the risks and benefits of surgery and agreed to proceed. DETAILS OF THE OPERATION: The patient was brought to the operating room and laid in the supine position on the operating table. The right axilla and abdomen were prepped and draped in a sterile and usual fashion. We first began by addressing the abdominal wound by debriding some of the nonviable tissue at the base and pulse lavage irrigation was used to irrigate the area and after hemostasis was achieved, the wound was prepared and ready for upper abdominal flap advancement. The upper abdominal flap was released further by performing relaxing incisions on the lateral aspect of the flap further advance we were able to accomplish a tension-free closure by closing the wound to the lower edge using #0 and 2-0 Vicryl sutures and multiple millie were used to close the skin. Prior to definitive closure, we placed 2 size 15 JPs within the wound. We then turned our attention to the right axillary wound. The wound was prepared by debriding some of the nonviable tissues and after pulse lavage irrigation and hemostasis was achieved. The thoracodorsal artery flap that was based off the lateral chest wall was then reelevated and placed into the axillary defect and inset using #0 and 2-0 Vicryl sutures and the donor site on the lateral chest wall was closed by advancing the anterior chest wall tissue to the posterior back tissue and reapproximating those edges by #0 and 2-0 Vicryl sutures and then all of the donor sites skin as well as skin closure for thoracodorsal artery flap, these were all closed using 2-0 Prolene sutures. Dressings were applied. The patient tolerated the procedure well. There was no complications. Jason Lloyd M.D. DR: RADHA JOB#: [id number] CC:
[2017-07-26] VITALS: BP 131/65
[2017-07-26] MEDS: D5 1/2NS 1,000 ML IV SCH (00:48)
[2017-07-26] MEDS: ceFAZolin 1gm in D5W 55ml IVPB SCH ×3 (01:28→17:19)
[2017-07-26 04:00] VITALS: BP 117/61
[2017-07-26] MEDS: PCA shift volume MISC SCH ×2 (07:18→19:00)
[2017-07-26 07:34] LABS: BASOPHILS % (AUTO) 0.2 % (0.0-2.0); EOSINOPHILS % (AUTO) 0.1 % (0.0-3.0); LYMPHOCYTES % (AUTO) 9.3 % (20.0-45.0); MEAN CORPUSCULAR HEMOGLOBIN 28.9 PG (27.0-31.0); MEAN CORPUSCULAR HGB CONC 32.8 G/DL (32.0-36.0); MEAN CORPUSCULAR VOLUME 88 FL (80-99); MEAN PLATELET VOLUME 6.3 FL (6.5-10.1); MONOCYTES % (AUTO) 6.3 % (1.0-10.0); NEUTROPHILS % (AUTO) 84.1 % (45.0-75.0); PLATELET COUNT 319 K/UL (150-450); RED BLOOD COUNT 3.81 M/UL (4.20-5.40); RED CELL DISTRIBUTION WIDTH 12.7 % (11.6-14.8); WHITE BLOOD COUNT 14.6 K/UL (4.8-10.8)
[2017-07-26 07:56] LABS: ALANINE AMINOTRANSFERASE 13 U/L (12-78); ANION GAP 6 mmol/L (5-15); ASPARTATE AMINO TRANSFERASE 10 U/L (15-37); BILIRUBIN,DIRECT < 0.1 MG/DL (0.0-0.3); CALCIUM 8.7 MG/DL (8.5-10.1); CARBON DIOXIDE 28 MMOL/L (21-32); CHLORIDE 105 MMOL/L (98-107); CREATININE 0.8 MG/DL (0.55-1.30); GLOMERULAR FILTRATION RATE > 60 mL/min (>60); MAGNESIUM 2.1 MG/DL (1.8-2.4); SODIUM 139 MMOL/L (136-145); TOTAL PROTEIN 6.9 G/DL (6.4-8.2)
[2017-07-26 08:16] VITALS: BP 116/63
[2017-07-26] MEDS: Metoprolol Tartrate 50mg tab ORAL SCH ×2 (09:25→21:26)
[2017-07-26] MEDS: Docusate 100mg cap ORAL SCH ×2 (09:25→21:26)
[2017-07-26] MEDS: guaiFENesin ER 600mg tab ORAL SCH (09:26)
[2017-07-26] MEDS: Heparin 5000 units/ml inj SUBQ SCH ×2 (09:27→21:27)
[2017-07-26 11:56] VITALS: BP 114/59
[2017-07-26] MEDS: PCA HYDROmorphone 1mg/ml 30 ML IV PRN (13:00)
[2017-07-26] MEDS ORDERED: guaiFENesin ER 600mg tab ORAL PRN (13:30)
[2017-07-26] MEDS ORDERED: Miralax 17gm pkt ORAL SCH (13:30)
[2017-07-26 16:00] VITALS: BP 130/68
--- NOTE | 2017-07-26 16:47 | Cardiac Electrophysiology PN ---
Assessment/Plan Assessment/Plan 1. History of supraventricular tachycardia. Denies any chest pain or shortness of breath. Continue Lopressor 50 bid. No recurrence of SVT 2. Hypertension, On Lopressor 50 bid 3. Transient episode of shortness of breath and cough that was completely resolved. EKG is completely normal. echocardiogram was normal. 4. Hydradenitis of the Righ arm pit and lowed abdomen, s/p surgery twice. Doing well. Still has the drains. DAVID RN Subjective Subjective Comfortable in NAD. No palpitation or SVT. Objective Last 24 Hour Vital Signs Date Time Temp Pulse Resp B/P (MAP) Pulse Ox O2 Delivery O2 Flow Rate FiO2 07/26/17 11:56 98.2 56 20 114/59 93 Room Air 07/26/17 09:25 60 116/63 07/26/17 08:16 98.7 60 20 116/63 96 Room Air 07/26/17 08:00 17 07/26/17 08:00 98.2 07/26/17 08:00 98.2 07/26/17 07:00 Nasal Cannula 3.0 32 07/26/17 04:00 98.5 80 18 117/61 98 Nasal Cannula 2.0 07/26/17 04:00 17 07/26/17 03:28 Nasal Cannula 3.0 32 07/26/17 03:28 97 Nasal Cannula 3.0 32 07/26/17 00:00 98.2 65 18 131/65 98 Nasal Cannula 2.0 07/26/17 00:00 16 07/25/17 20:39 68 121/58 07/25/17 20:00 98.9 68 17 121/58 98 Room Air 3.0 07/25/17 20:00 17 Intake and Output 07/26/17 07/27/17 19:00 07:00 Intake Total 860 ml Output Total 800 ml Balance 60 ml Intake Oral 860 ml Output Urine Total 800 ml # Voids 1 Laboratory Tests Test 07/26/17 05:20 White Blood Count 14.6 K/UL (4.8-10.8) H Red Blood Count 3.81 M/UL (4.20-5.40) L Hemoglobin 11.0 G/DL (12.0-16.0) L Hematocrit 33.6 % (37.0-47.0) L Mean Corpuscular Volume 88 FL (80-99) Mean Corpuscular Hemoglobin 28.9 PG (27.0-31.0) Mean Corpuscular Hemoglobin Concent 32.8 G/DL (32.0-36.0) Red Cell Distribution Width 12.7 % (11.6-14.8) Platelet Count 319 K/UL (150-450) Mean Platelet Volume 6.3 FL (6.5-10.1) L Neutrophils (%) (Auto) 84.1 % (45.0-75.0) H Lymphocytes (%) (Auto) 9.3 % (20.0-45.0) L Monocytes (%) (Auto) 6.3 % (1.0-10.0) Eosinophils (%) (Auto) 0.1 % (0.0-3.0) Basophils (%) (Auto) 0.2 % (0.0-2.0) Sodium Level 139 MMOL/L (136-145) Potassium Level 4.0 MMOL/L (3.5-5.1) Chloride Level 105 MMOL/L (98-107) Carbon Dioxide Level 28 MMOL/L (21-32) Anion Gap 6 mmol/L (5-15) Blood Urea Nitrogen 9 mg/dL (7-18) Creatinine 0.8 MG/DL (0.55-1.30) Estimat Glomerular Filtration Rate > 60 mL/min (>60) Glucose Level 124 MG/DL (74-106) H Calcium Level 8.7 MG/DL (8.5-10.1) Magnesium Level 2.1 MG/DL (1.8-2.4) Total Bilirubin 0.2 MG/DL (0.2-1.0) Direct Bilirubin < 0.1 MG/DL (0.0-0.3) Aspartate Amino Transf (AST/SGOT) 10 U/L (15-37) L Alanine Aminotransferase (ALT/SGPT) 13 U/L (12-78) Alkaline Phosphatase 54 U/L (46-116) Total Protein 6.9 G/DL (6.4-8.2) Albumin 2.9 G/DL (3.4-5.0) L Objective HEAD AND NECK: No JVD. LUNGS: Clear. CARDIOVASCULAR: Regular S1 and S2 with no gallop or murmur. ABDOMEN: Soft and nontender. Lower abdomen s/P surgery with drains. EXTREMITIES: No pitting edema.Right arm pit s/p Surgery with drain ALEJANDRA BUCHANAN Jul 26, 2017 16:47
[2017-07-26 20:23] VITALS: BP 118/65
[2017-07-26] MEDS: DiphenhydrAMINE 50mg/ml Inj IVP PRN (23:05)
--- NOTE | 2017-07-26 23:42 | General Progress Note ---
Assessment/Plan Problem List: (1) Abscess ICD Codes: L02.91 - Cutaneous abscess, unspecified SNOMED: 877516083 (2) Hidradenitis suppurativa ICD Codes: L73.2 - Hidradenitis suppurativa SNOMED: 33593337 (3) Paroxysmal atrial tachycardia ICD Codes: I47.1 - Supraventricular tachycardia SNOMED: 230949797 (4) HTN (hypertension) ICD Codes: I10 - Essential (primary) hypertension SNOMED: 03069325 (5) GERD (gastroesophageal reflux disease) ICD Codes: K21.9 - Gastro-esophageal reflux disease without esophagitis SNOMED: 869659790 (6) Acute blood loss anemia ICD Codes: D62 - Acute posthemorrhagic anemia SNOMED: 833913125 Status: stable Assessment/Plan Appreciate plastic surgery rec's s/p right axillary and lower abdominal wall debridement with flap elevation on 07/23/17 s/p closure of right axillary and abdominal wounds on 07/25/17 Cont iV abx F/u cultures Post operative recommendations include: - encourage mobilization/ambulation - encourage incentive spirometry to optimize pulmonary hygiene - DVT/GI prophylaxis as appropriate--SCDs, HSQ - pain control, supportive care, bowel regimen Appreciate cardiology rec's TTE unremarkable Cont home MTP Cont home PPI Mucinex PRN DVT ppx: SCDs, HSQ as pt is now moderate risk postop A total of 31min of extra time was spent in addition to normal encounter time for care/coordination and counseling. D/w pt/family, RN, SW/CM, surgery, cardiology regarding mgmt and dispo Subjective Date patient seen: Jul 26, 2017 Time patient seen: 15:00 ROS Limited/Unobtainable: No Constitutional: Reports: no symptoms HEENT: Reports: no symptoms Cardiovascular: Reports: no symptoms Respiratory: Reports: cough Gastrointestinal/Abdominal: Reports: no symptoms Genitourinary: Reports: no symptoms Neurologic/Psychiatric: Reports: no symptoms Endocrine: Reports: no symptoms Hematologic/Lymphatic: Reports: no symptoms Allergies: Coded Allergies: CELECOXIB (Verified Allergy, Unknown, 07/22/17) All Systems: reviewed and negative except above Subjective No acute o/n events s/p right axillary and lower abdominal wall debridement with flap elevation POD# 3 s/p closure of right axillary and abdominal wounds POD#1 Pt doing well. Nausea improved, no emesis. Pain controlled, denies f/c, d/c, chest pain, palpitations Objective Last 24 Hour Vital Signs Date Time Temp Pulse Resp B/P (MAP) Pulse Ox O2 Delivery O2 Flow Rate FiO2 07/26/17 21:26 71 118/65 07/26/17 20:23 99.4 71 18 118/65 95 Room Air 07/26/17 16:00 98.7 61 20 130/68 98 Room Air 07/26/17 16:00 18 07/26/17 13:00 18 07/26/17 12:00 17 07/26/17 11:56 98.2 56 20 114/59 93 Room Air 07/26/17 09:25 60 116/63 07/26/17 08:16 98.7 60 20 116/63 96 Room Air 07/26/17 08:00 17 07/26/17 08:00 98.2 07/26/17 08:00 98.2 07/26/17 07:00 Nasal Cannula 3.0 32 07/26/17 04:00 98.5 80 18 117/61 98 Nasal Cannula 2.0 07/26/17 04:00 17 07/26/17 03:28 Nasal Cannula 3.0 32 07/26/17 03:28 97 Nasal Cannula 3.0 32 07/26/17 00:00 98.2 65 18 131/65 98 Nasal Cannula 2.0 07/26/17 00:00 16 Intake and Output 07/26/17 07/27/17 19:00 07:00 Intake Total 860 ml Output Total 800 ml Balance 60 ml Intake Oral 860 ml Output Urine Total 800 ml # Voids 1 Laboratory Tests 07/26/17 05:20: White Blood Count 14.6H, Red Blood Count 3.81L, Hemoglobin 11.0L, Hematocrit 33.6L, Mean Corpuscular Volume 88, Mean Corpuscular Hemoglobin 28.9, Mean Corpuscular Hemoglobin Concent 32.8, Red Cell Distribution Width 12.7, Platelet Count 319, Mean Platelet Volume 6.3L, Neutrophils (%) (Auto) 84.1H, Lymphocytes (%) (Auto) 9.3L, Monocytes (%) (Auto) 6.3, Eosinophils (%) (Auto) 0.1, Basophils (%) (Auto) 0.2, Sodium Level 139, Potassium Level 4.0, Chloride Level 105, Carbon Dioxide Level 28, Anion Gap 6, Blood Urea Nitrogen 9, Creatinine 0.8 , Estimat Glomerular Filtration Rate > 60, Glucose Level 124H, Calcium Level 8.7 , Magnesium Level 2.1, Total Bilirubin 0.2, Direct Bilirubin < 0.1, Aspartate Amino Transf (AST/SGOT) 10L, Alanine Aminotransferase (ALT/SGPT) 13, Alkaline Phosphatase 54, Total Protein 6.9, Albumin 2.9L Height (Feet): 5 Height (Inches): 9.00 Weight (Pounds): 280 Objective General: alert, cooperative, no distress, appears stated age Head: normocephalic, without obvious abnormality, atraumatic Eyes: conjunctivae/corneas clear. PERRL, EOM's intact Throat: lips, mucosa, and tongue normal. MMM Neck: supple, symmetrical, trachea midline, and no JVD Lungs: clear to auscultation bilaterally Heart: regular rate and rhythm, S1, S2 normal, no murmur, click, rub or gallop Abdomen: soft, non-tender, non-distended, bowel sounds normal; no masses or organomegaly Extremities: extremities normal, atraumatic, no cyanosis or edema Pulses: 2+ and symmetric Skin: Dressing c/d/i Neurologic: grossly normal, no focal deficits Vasu Bowen M.D. Jul 26, 2017 23:42
[2017-07-27 00:40] VITALS: BP 140/73
[2017-07-27] MEDS: ceFAZolin 1gm in D5W 55ml IVPB SCH ×3 (02:29→17:00)
[2017-07-27 04:00] VITALS: BP 130/65
[2017-07-27] MEDS: PCA shift volume MISC SCH ×2 (07:00→19:08)
[2017-07-27 08:00] VITALS: BP 134/75
[2017-07-27] MEDS ORDERED: Rate Change PCA 1 Each MISC PRN (09:00)
[2017-07-27] MEDS ORDERED: Naloxone 0.4mg/ml Inj IV PRN (09:00)
[2017-07-27] MEDS: Metoprolol Tartrate 50mg tab ORAL SCH ×2 (09:31→21:02)
[2017-07-27] MEDS: Docusate 100mg cap ORAL SCH ×2 (09:31→21:02)
[2017-07-27] MEDS: Miralax 17gm pkt ORAL SCH (09:31)
[2017-07-27] MEDS: Heparin 5000 units/ml inj SUBQ SCH ×2 (09:32→21:05)
[2017-07-27] MEDS ORDERED: NS 500ML ONE (10:30)
[2017-07-27 12:00] VITALS: BP 155/81
--- NOTE | 2017-07-27 12:23 | General Progress Note ---
Assessment/Plan Problem List: (1) Abscess ICD Codes: L02.91 - Cutaneous abscess, unspecified SNOMED: 943318384 (2) Hidradenitis suppurativa ICD Codes: L73.2 - Hidradenitis suppurativa SNOMED: 03496286 (3) Paroxysmal atrial tachycardia ICD Codes: I47.1 - Supraventricular tachycardia SNOMED: 848733098 (4) HTN (hypertension) ICD Codes: I10 - Essential (primary) hypertension SNOMED: 46230692 (5) GERD (gastroesophageal reflux disease) ICD Codes: K21.9 - Gastro-esophageal reflux disease without esophagitis SNOMED: 868073648 (6) Acute blood loss anemia ICD Codes: D62 - Acute posthemorrhagic anemia SNOMED: 576801046 Status: stable Assessment/Plan Appreciate plastic surgery rec's s/p right axillary and lower abdominal wall debridement with flap elevation on 07/23/17 s/p closure of right axillary and abdominal wounds on 07/25/17 Cont IV abx F/u cultures Post operative recommendations include: - encourage mobilization/ambulation - encourage incentive spirometry to optimize pulmonary hygiene - DVT/GI prophylaxis as appropriate--SCDs, HSQ - pain control, supportive care, bowel regimen Appreciate cardiology rec's TTE unremarkable Cont home MTP Cont home PPI Mucinex PRN DVT ppx: SCDs, HSQ as pt is now moderate risk postop A total of 31min of extra time was spent in addition to normal encounter time for care/coordination and counseling. D/w pt/family, RN, SW/CM, surgery, cardiology regarding mgmt and dispo Subjective Date patient seen: Jul 27, 2017 Time patient seen: 12:23 ROS Limited/Unobtainable: No Constitutional: Reports: no symptoms HEENT: Reports: no symptoms Cardiovascular: Reports: no symptoms Respiratory: Reports: no symptoms Gastrointestinal/Abdominal: Reports: no symptoms Genitourinary: Reports: no symptoms Neurologic/Psychiatric: Reports: no symptoms Endocrine: Reports: no symptoms Hematologic/Lymphatic: Reports: no symptoms Allergies: Coded Allergies: CELECOXIB (Verified Allergy, Unknown, 07/22/17) All Systems: reviewed and negative except above Subjective No acute o/n events s/p right axillary and lower abdominal wall debridement with flap elevation POD# 4 s/p closure of right axillary and abdominal wounds POD#2 Pt doing well. Nausea improved, no emesis. Pain controlled, denies f/c, d/c, chest pain, palpitations No BM yet Ambulating a few steps yesterday Objective Last 24 Hour Vital Signs Date Time Temp Pulse Resp B/P (MAP) Pulse Ox O2 Delivery O2 Flow Rate FiO2 07/27/17 10:24 Room Air 07/27/17 10:24 95 Room Air 07/27/17 09:31 75 134/75 07/27/17 08:00 18 07/27/17 08:00 98.4 75 18 134/75 95 Room Air 07/27/17 05:00 98.4 07/27/17 04:00 99.1 64 18 130/65 95 Room Air 07/27/17 04:00 18 07/27/17 00:40 98.9 57 18 140/73 96 Room Air 07/27/17 00:00 18 07/26/17 21:26 71 118/65 07/26/17 20:23 99.4 71 18 118/65 95 Room Air 07/26/17 20:05 18 07/26/17 16:00 98.7 61 20 130/68 98 Room Air 07/26/17 16:00 18 07/26/17 13:00 18 Intake and Output 07/27/17 07/28/17 19:00 07:00 Output Total 1000 ml Balance -1000 ml Output Urine Total 1000 ml Height (Feet): 5 Height (Inches): 9.00 Weight (Pounds): 280 Objective General: alert, cooperative, no distress, appears stated age Head: normocephalic, without obvious abnormality, atraumatic Eyes: conjunctivae/corneas clear. PERRL, EOM's intact Throat: lips, mucosa, and tongue normal. MMM Neck: supple, symmetrical, trachea midline, and no JVD Lungs: clear to auscultation bilaterally Heart: regular rate and rhythm, S1, S2 normal, no murmur, click, rub or gallop Abdomen: soft, non-tender, non-distended, bowel sounds normal; no masses or organomegaly Extremities: extremities normal, atraumatic, no cyanosis or edema Pulses: 2+ and symmetric Skin: Dressing c/d/i Neurologic: grossly normal, no focal deficits Vasu Bowen M.D. Jul 27, 2017 12:23
[2017-07-27] MEDS: PCA HYDROmorphone 1mg/ml 30 ML IV PRN (13:33)
[2017-07-27 16:00] VITALS: BP 174/89
[2017-07-27] MEDS ORDERED: HydrALAZINE 10mg Tab ORAL PRN (16:45)
[2017-07-27] MEDS ORDERED: HydrALAZINE 10mg Tab ORAL SCH (18:00)
[2017-07-27 20:00] VITALS: BP 143/72
[2017-07-28] VITALS (7 sets, daily range): BP systolic 63–132; BP diastolic 59–70
[2017-07-28] MEDS: ceFAZolin 1gm in D5W 55ml IVPB SCH ×3 (02:18→18:00)
[2017-07-28 05:22] LABS: BASOPHILS % (AUTO) 0.7 % (0.0-2.0); EOSINOPHILS % (AUTO) 1.8 % (0.0-3.0); LYMPHOCYTES % (AUTO) 11.1 % (20.0-45.0); MEAN CORPUSCULAR HEMOGLOBIN 28.9 PG (27.0-31.0); MEAN CORPUSCULAR HGB CONC 33.3 G/DL (32.0-36.0); MEAN CORPUSCULAR VOLUME 87 FL (80-99); MEAN PLATELET VOLUME 5.7 FL (6.5-10.1); MONOCYTES % (AUTO) 8.7 % (1.0-10.0); NEUTROPHILS % (AUTO) 77.7 % (45.0-75.0); PLATELET COUNT 378 K/UL (150-450); RED BLOOD COUNT 4.29 M/UL (4.20-5.40); RED CELL DISTRIBUTION WIDTH 12.8 % (11.6-14.8)
[2017-07-28 05:48] LABS: ANION GAP 7 mmol/L (5-15); CALCIUM 8.9 MG/DL (8.5-10.1); CARBON DIOXIDE 29 MMOL/L (21-32); CHLORIDE 100 MMOL/L (98-107); CREATININE 0.8 MG/DL (0.55-1.30); GLOMERULAR FILTRATION RATE > 60 mL/min (>60); POTASSIUM 4.1 MMOL/L (3.5-5.1); SODIUM 136 MMOL/L (136-145)
[2017-07-28] MEDS: PCA shift volume MISC SCH ×2 (07:00→19:00)
[2017-07-28] MEDS: Docusate 100mg cap ORAL SCH ×2 (08:45→20:40)
[2017-07-28] MEDS: Mylanta II UD 30ml ORAL PRN (08:45)
[2017-07-28] MEDS: Miralax 17gm pkt ORAL SCH (08:45)
[2017-07-28] MEDS: Metoprolol Tartrate 50mg tab ORAL SCH ×2 (08:45→20:42)
[2017-07-28] MEDS: Heparin 5000 units/ml inj SUBQ SCH ×2 (08:51→20:47)
[2017-07-28] MEDS: Neosporin Oint 15gm TOPIC SCH ×2 (10:22→18:26)
--- NOTE | 2017-07-28 13:54 | Cardiac Electrophysiology PN ---
Assessment/Plan Assessment/Plan 1. History of supraventricular tachycardia. No chest pain or shortness of breath. Continue Lopressor 50 bid. 2. Hypertension, On Lopressor 50 bid 3. Transient episode of shortness of breath and cough that was completely resolved. EKG is completely normal. echocardiogram was normal. 4. Hydradenitis of the Righ arm pit and lowed abdomen, s/p surgery twice. Doing well. Still has the drains. DAVID RN Subjective Subjective Comfortable in NAD. No recurrence of palpitation.Still has the drains. Objective Last 24 Hour Vital Signs Date Time Temp Pulse Resp B/P (MAP) Pulse Ox O2 Delivery O2 Flow Rate FiO2 07/28/17 12:00 22 07/28/17 12:00 97.1 80 16 63/ 96 Nasal Cannula 3.0 07/28/17 08:45 71 105/63 07/28/17 08:00 99.0 71 17 105/63 95 Room Air 07/28/17 08:00 20 07/28/17 06:17 99.7 07/28/17 04:05 18 07/28/17 04:00 101.7 83 18 125/63 95 Nasal Cannula 2.0 07/28/17 01:22 99.3 07/28/17 00:27 101.4 90 18 132/70 95 Nasal Cannula 2.0 07/28/17 00:25 18 07/27/17 23:40 99.9 07/27/17 21:02 96 142/72 07/27/17 20:00 102.6 100 16 143/72 95 Nasal Cannula 2.0 07/27/17 20:00 18 07/27/17 19:10 Nasal Cannula 3.0 32 07/27/17 19:10 96 Nasal Cannula 3.0 32 07/27/17 17:01 174/89 07/27/17 16:00 102.6 85 18 174/89 97 Room Air 07/27/17 16:00 18 07/27/17 14:06 98.4 Intake and Output 07/28/17 07/29/17 19:00 07:00 Intake Total 250 ml Output Total 400 ml Balance -150 ml Intake Oral 250 ml Output Urine Total 400 ml Laboratory Tests Test 07/28/17 04:20 White Blood Count 15.0 K/UL (4.8-10.8) H Red Blood Count 4.29 M/UL (4.20-5.40) Hemoglobin 12.4 G/DL (12.0-16.0) Hematocrit 37.3 % (37.0-47.0) Mean Corpuscular Volume 87 FL (80-99) Mean Corpuscular Hemoglobin 28.9 PG (27.0-31.0) Mean Corpuscular Hemoglobin Concent 33.3 G/DL (32.0-36.0) Red Cell Distribution Width 12.8 % (11.6-14.8) Platelet Count 378 K/UL (150-450) Mean Platelet Volume 5.7 FL (6.5-10.1) L Neutrophils (%) (Auto) 77.7 % (45.0-75.0) H Lymphocytes (%) (Auto) 11.1 % (20.0-45.0) L Monocytes (%) (Auto) 8.7 % (1.0-10.0) Eosinophils (%) (Auto) 1.8 % (0.0-3.0) Basophils (%) (Auto) 0.7 % (0.0-2.0) Sodium Level 136 MMOL/L (136-145) Potassium Level 4.1 MMOL/L (3.5-5.1) Chloride Level 100 MMOL/L (98-107) Carbon Dioxide Level 29 MMOL/L (21-32) Anion Gap 7 mmol/L (5-15) Blood Urea Nitrogen 10 mg/dL (7-18) Creatinine 0.8 MG/DL (0.55-1.30) Estimat Glomerular Filtration Rate > 60 mL/min (>60) Glucose Level 118 MG/DL (74-106) H Calcium Level 8.9 MG/DL (8.5-10.1) Objective HEAD AND NECK: No JVD. LUNGS: Clear. CARDIOVASCULAR: Regular S1 and S2 with no gallop or murmur. ABDOMEN: Soft and nontender. Lower abdomen drains present EXTREMITIES: No pitting edema.Right axilla s/p Surgery with drain ALEJANDRA BUCHANAN Jul 28, 2017 13:54
[2017-07-28] MEDS: PCA HYDROmorphone 1mg/ml 30 ML IV PRN (15:49)
[2017-07-28 18:24] LABS: APPEARANCE,URINE CLOUDY; KETONES,URINE NEGATIVE (NEGATIVE); LEUKOCYTE ESTERASE ,URINE 2+ (NEGATIVE); NITRITE,URINE POSITIVE (NEGATIVE); PH,URINE 6.5 (4.5-8.0); PROTEIN,URINE NEGATIVE (NEGATIVE); UROBILINOGEN,URINE NORMAL MG/DL (0.0-1.0)
[2017-07-28] MEDS ORDERED: ceFAZolin sod 1 GM in D5W 55 ML IVPB SCH (18:30)
[2017-07-28 18:35] LABS: BACTERIA,URINE MODERATE /HPF; SQUAMOUS EPITHELIAL CELL,UR MODERATE /LPF (NONE/OCC); WBC,URINE 15-20 /HPF (0 - 2)
--- NOTE | 2017-07-28 18:36 | Infectious Diseases Prog Note ---
Assessment/Plan Assessment/Plan Full consult dictated: A) 1) fevers, leukocytosis, possible uti wiht significantly + ua 2) right axilla and lower abdominal wound infection with abscess/cellulitis 3) s/p debridement and closure, prior wound culture with mssa and program development manager 4) hidradenitis suppurativa, htn, svt/tachycardia hx, fibromyalgia, gerd, anemia 5) allergy - celecoxib, fh-nc, sh-negative, mar noted, notes and records noted 6) d/w RN P) 1) change to vancomycin and rocephin 2) check bc, urine culture, labs and chest x-ray 3) continue tx per Dr. Leone, Dr. Lloyd and consultants 4) wound care per surgery 5) d/w Dr. Leone 6) orders entered and noted 7) thank you Subjective Allergies: Coded Allergies: CELECOXIB (Verified Allergy, Unknown, 07/22/17) Objective Vital Signs Last 24 Hour Vital Signs Date Time Temp Pulse Resp B/P (MAP) Pulse Ox O2 Delivery O2 Flow Rate FiO2 07/28/17 16:00 20 07/28/17 16:00 98.8 76 17 111/61 93 Room Air 07/28/17 13:55 74 18 111/59 94 Room Air 07/28/17 12:00 22 07/28/17 12:00 97.1 80 16 63/ 96 Nasal Cannula 3.0 07/28/17 08:45 71 105/63 07/28/17 08:00 99.0 71 17 105/63 95 Room Air 07/28/17 08:00 20 07/28/17 06:17 99.7 07/28/17 04:05 18 07/28/17 04:00 101.7 83 18 125/63 95 Nasal Cannula 2.0 07/28/17 01:22 99.3 07/28/17 00:27 101.4 90 18 132/70 95 Nasal Cannula 2.0 07/28/17 00:25 18 07/27/17 23:40 99.9 07/27/17 21:02 96 142/72 07/27/17 20:00 102.6 100 16 143/72 95 Nasal Cannula 2.0 07/27/17 20:00 18 07/27/17 19:10 Nasal Cannula 3.0 32 07/27/17 19:10 96 Nasal Cannula 3.0 32 Height (Feet): 5 Height (Inches): 9.00 Weight (Pounds): 280 Laboratory Tests Test 07/28/17 04:20 White Blood Count 15.0 K/UL (4.8-10.8) H Red Blood Count 4.29 M/UL (4.20-5.40) Hemoglobin 12.4 G/DL (12.0-16.0) Hematocrit 37.3 % (37.0-47.0) Mean Corpuscular Volume 87 FL (80-99) Mean Corpuscular Hemoglobin 28.9 PG (27.0-31.0) Mean Corpuscular Hemoglobin Concent 33.3 G/DL (32.0-36.0) Red Cell Distribution Width 12.8 % (11.6-14.8) Platelet Count 378 K/UL (150-450) Mean Platelet Volume 5.7 FL (6.5-10.1) L Neutrophils (%) (Auto) 77.7 % (45.0-75.0) H Lymphocytes (%) (Auto) 11.1 % (20.0-45.0) L Monocytes (%) (Auto) 8.7 % (1.0-10.0) Eosinophils (%) (Auto) 1.8 % (0.0-3.0) Basophils (%) (Auto) 0.7 % (0.0-2.0) Sodium Level 136 MMOL/L (136-145) Potassium Level 4.1 MMOL/L (3.5-5.1) Chloride Level 100 MMOL/L (98-107) Carbon Dioxide Level 29 MMOL/L (21-32) Anion Gap 7 mmol/L (5-15) Blood Urea Nitrogen 10 mg/dL (7-18) Creatinine 0.8 MG/DL (0.55-1.30) Estimat Glomerular Filtration Rate > 60 mL/min (>60) Glucose Level 118 MG/DL (74-106) H Calcium Level 8.9 MG/DL (8.5-10.1) Current Medications Medications (Trade) Dose Ordered Sig/Sreedhar Route PRN Reason Start Time Stop Time Status Last Admin Dose Admin Acetaminophen (Tylenol) 650 mg Q4H PRN ORAL FEVER 07/25/17 09:00 08/24/17 08:59 07/28/17 05:18 Al Hydroxide/Mg Hydroxide (Mylanta II) 30 ml Q6H PRN ORAL dyspepsia 07/22/17 13:30 08/21/17 13:29 07/28/17 08:45 Bisacodyl (Dulcolax) 10 mg DAILYPRN PRN RECTAL Constipation 07/26/17 13:30 08/25/17 13:29 Cefazolin Sodium 1 gm/Dextrose 55 ml @ 110 mls/hr Q8H IVPB 07/22/17 18:00 07/29/17 17:59 07/28/17 10:22 Cetirizine HCl (ZyrTEC) 10 mg QPM ORAL 07/22/17 16:30 08/21/17 16:29 07/28/17 15:42 Dextrose (Dextrose 50%) STAT PRN IV Hypoglycemia 07/22/17 13:30 08/21/17 13:29 Diphenhydramine HCl (Benadryl) 12.5 mg Q6H PRN IVP Itching/Pruritis 07/23/17 09:00 08/22/17 08:59 07/26/17 23:05 Diphenhydramine HCl (Benadryl) 25 mg Q6H PRN ORAL Itching/Pruritis 07/22/17 13:30 08/21/17 13:29 07/27/17 17:00 Docusate Sodium (Colace) 100 mg EVERY 12 HOURS ORAL 07/22/17 21:00 08/21/17 20:59 07/28/17 08:45 Guaifenesin (Mucinex ER) 600 mg TWICE A DAY PRN ORAL cough, congestion 07/26/17 13:30 08/25/17 13:29 07/26/17 17:19 Heparin Sodium (Porcine) (Heparin 5000 units/ml) 5,000 units EVERY 12 HOURS SUBQ 07/25/17 21:00 08/24/17 20:59 07/28/17 08:51 Hydralazine HCl (Apresoline) 10 mg Q6H PRN ORAL SBP > 160 07/27/17 16:45 08/26/17 16:44 07/27/17 17:01 Hydromorphone HCl 30 ml @ 0 mls/hr Q24H PRN IV For Pain 07/27/17 12:15 07/29/17 12:14 07/28/17 15:49 Hydromorphone HCl (Dilaudid) 2 mg Q3H PRN SUBQ Severe Pain (Pain Scale 7-10) 07/27/17 09:15 07/29/17 09:14 Hydromorphone HCl (Dilaudid) 2 mg Q4H PRN IVP Moderate Pain (Pain Scale 4-6) 07/27/17 12:15 07/29/17 12:14 Metoclopramide HCl (Reglan) 10 mg Q6H PRN IVP Nausea & Vomiting 07/25/17 09:00 08/24/17 08:59 07/28/17 12:50 Metoprolol Tartrate (Lopressor) 50 mg Q12HR ORAL 07/24/17 21:00 08/23/17 20:59 07/28/17 08:45 Miscellaneous Medication (INDUSTRIAL [employer]MICALS SUPERVISOR Rate Change) 1 ea DAILY PRN MISC rate change 07/27/17 09:00 07/29/17 08:59 Miscellaneous Medication ([employer]RI[employer] SUPERVISOR shift volume) 1 ea Q12HR@0700,1900 MISC 07/27/17 19:00 07/29/17 18:59 07/28/17 07:00 Naloxone HCl (Narcan) 0.1 mg STAT PRN IV RR<10,SBP<90,OR NON-RESPONSIVE 07/27/17 09:00 08/26/17 08:59 Neomycin/ Polymyxin/ Bacitracin (Neosporin Oint 15gm) 1 applic BID TOPIC 07/28/17 11:00 08/27/17 10:59 07/28/17 10:22 Ondansetron HCl (Zofran) 4 mg Q6H PRN IVP Nausea & Vomiting 07/25/17 09:00 08/24/17 08:59 07/28/17 11:55 Pantoprazole (Protonix) 40 mg BEFORE DINNER ORAL 07/22/17 16:30 08/22/17 08:59 07/28/17 15:42 Polyethylene Glycol (Miralax) 17 gm DAILY ORAL 07/27/17 09:00 08/26/17 08:59 07/28/17 08:45 Sodium Chloride 1,000 ml @ 75 mls/hr [id number] IV 07/28/17 15:45 08/27/17 15:44 07/28/17 15:42 Zolpidem Tartrate (Ambien) 5 mg HSPRN PRN ORAL Insomnia 07/22/17 13:30 07/29/17 13:29 RADHA PARRA Jul 28, 2017 18:36
[2017-07-28] MEDS ORDERED: cefTRIAXone 1 GM in D5W 50 ML IVPB SCH (19:00)
--- NOTE | 2017-07-28 19:55 | General Progress Note ---
Assessment/Plan Problem List: (1) Sepsis ICD Codes: A41.9 - Sepsis, unspecified organism SNOMED: 86185667 (2) UTI (urinary tract infection) ICD Codes: N39.0 - Urinary tract infection, site not specified SNOMED: 72997795 (3) Abscess ICD Codes: L02.91 - Cutaneous abscess, unspecified SNOMED: 332478211 (4) Hidradenitis suppurativa ICD Codes: L73.2 - Hidradenitis suppurativa SNOMED: 67273470 (5) Paroxysmal atrial tachycardia ICD Codes: I47.1 - Supraventricular tachycardia SNOMED: 672223857 (6) HTN (hypertension) ICD Codes: I10 - Essential (primary) hypertension SNOMED: 69012632 (7) GERD (gastroesophageal reflux disease) ICD Codes: K21.9 - Gastro-esophageal reflux disease without esophagitis SNOMED: 339364731 (8) Acute blood loss anemia ICD Codes: D62 - Acute posthemorrhagic anemia SNOMED: 311199112 Status: stable Assessment/Plan Appreciate plastic surgery rec's s/p right axillary and lower abdominal wall debridement with flap elevation on 07/23/17 s/p closure of right axillary and abdominal wounds on 07/25/17 Cont IV abx--expanded to vanco and ceftriaxone per ID U/A c/w UTI F/u repeat blood culture, CXR ID consulted, appreciate rec's Post operative recommendations include: - encourage mobilization/ambulation - encourage incentive spirometry to optimize pulmonary hygiene - DVT/GI prophylaxis as appropriate--SCDs, HSQ - pain control, supportive care, bowel regimen Appreciate cardiology rec's TTE unremarkable Cont home MTP Cont home PPI Mucinex PRN DVT ppx: SCDs, HSQ as pt is now moderate risk postop A total of 31min of extra time was spent in addition to normal encounter time for care/coordination and counseling. D/w pt/family, RN, SW/CM, surgery, cardiology regarding mgmt and dispo Subjective Date patient seen: Jul 28, 2017 Time patient seen: 13:00 Constitutional: Reports: fever, weakness HEENT: Reports: no symptoms Cardiovascular: Reports: no symptoms Respiratory: Reports: no symptoms Gastrointestinal/Abdominal: Reports: no symptoms Genitourinary: Reports: no symptoms Neurologic/Psychiatric: Reports: no symptoms Endocrine: Reports: no symptoms Hematologic/Lymphatic: Reports: no symptoms Allergies: Coded Allergies: CELECOXIB (Verified Allergy, Unknown, 07/22/17) All Systems: reviewed and negative except above Subjective Tmax 102 overnight s/p right axillary and lower abdominal wall debridement with flap elevation POD# 5 s/p closure of right axillary and abdominal wounds POD#3 WBC rising to 15K Hale removed this AM Pt feels fatigued. Pain controlled, denies f/c, d/c, chest pain, palpitations No BM yet Ambulating Objective Last 24 Hour Vital Signs Date Time Temp Pulse Resp B/P (MAP) Pulse Ox O2 Delivery O2 Flow Rate FiO2 07/28/17 16:19 98.8 07/28/17 16:00 20 07/28/17 16:00 98.8 76 17 111/61 93 Room Air 07/28/17 13:55 74 18 111/59 94 Room Air 07/28/17 12:00 22 07/28/17 12:00 97.1 80 16 63/ 96 Nasal Cannula 3.0 07/28/17 08:45 71 105/63 07/28/17 08:00 99.0 71 17 105/63 95 Room Air 07/28/17 08:00 20 07/28/17 06:17 99.7 07/28/17 04:05 18 07/28/17 04:00 101.7 83 18 125/63 95 Nasal Cannula 2.0 07/28/17 01:22 99.3 07/28/17 00:27 101.4 90 18 132/70 95 Nasal Cannula 2.0 07/28/17 00:25 18 07/27/17 23:40 99.9 07/27/17 21:02 96 142/72 07/27/17 20:00 102.6 100 16 143/72 95 Nasal Cannula 2.0 07/27/17 20:00 18 Intake and Output 07/28/17 07/29/17 19:00 07:00 Intake Total 400 ml 300 ml Output Total 1400 ml 35 ml Balance -1000 ml 265 ml Intake Oral 250 ml 300 ml IV Total 150 ml Output Urine Total 1400 ml Drainage Total 35 ml # Voids 1 Laboratory Tests 07/28/17 04:20: White Blood Count 15.0H, Red Blood Count 4.29, Hemoglobin 12.4, Hematocrit 37.3 , Mean Corpuscular Volume 87, Mean Corpuscular Hemoglobin 28.9, Mean Corpuscular Hemoglobin Concent 33.3, Red Cell Distribution Width 12.8, Platelet Count 378, Mean Platelet Volume 5.7L, Neutrophils (%) (Auto) 77.7H, Lymphocytes (%) (Auto) 11.1L, Monocytes (%) (Auto) 8.7, Eosinophils (%) (Auto) 1.8, Basophils (%) (Auto) 0.7, Sodium Level 136, Potassium Level 4.1, Chloride Level 100, Carbon Dioxide Level 29, Anion Gap 7, Blood Urea Nitrogen 10, Creatinine 0.8, Estimat Glomerular Filtration Rate > 60, Glucose Level 118H, Calcium Level 8.9 07/28/17 16:55: Urine Color Pale yellow, Urine Appearance Cloudy, Urine pH 6.5, Urine Specific [place] 1.010, Urine Protein Negative, Urine Glucose (UA) Negative, Urine Ketones Negative, Urine Occult Blood 5+H, Urine Nitrite PositiveH, Urine Bilirubin Negative, Urine Urobilinogen Normal, Urine Leukocyte Esterase 2+H, Urine RBC 5-10H, Urine WBC 15-20H, Urine Squamous Epithelial Cells ModerateH, Urine Bacteria ModerateH Height (Feet): 5 Height (Inches): 9.00 Weight (Pounds): 280 Objective General: alert, cooperative, no distress, appears stated age Head: normocephalic, without obvious abnormality, atraumatic Eyes: conjunctivae/corneas clear. PERRL, EOM's intact Throat: lips, mucosa, and tongue normal. MMM Neck: supple, symmetrical, trachea midline, and no JVD Lungs: clear to auscultation bilaterally Heart: regular rate and rhythm, S1, S2 normal, no murmur, click, rub or gallop Abdomen: soft, non-tender, non-distended, bowel sounds normal; no masses or organomegaly Extremities: extremities normal, atraumatic, no cyanosis or edema Pulses: 2+ and symmetric Skin: Dressing c/d/i Neurologic: grossly normal, no focal deficits Vasu Bowen M.D. Jul 28, 2017 19:55
[2017-07-28] MEDS: Vancomycin 1500mg IVPB SCH (21:16)
--- NOTE | 2017-07-29 | Consultation ---
DATE OF CONSULTATION: 07/28/2017 INFECTIOUS DISEASES CONSULTATION CONSULTING PHYSICIAN: Yaneli Garcia M.D. ATTENDING PHYSICIAN: Heriberto Lara M.D. REFERRING PHYSICIAN: I was asked by Dr. Leone to see this patient. REASON FOR CONSULTATION: Urinary tract infection, fevers, leukocytosis, and history of wound infection. CHIEF COMPLAINT: The patient's chief complaint coming in was hidradenitis suppurativa, infected wound. HISTORY OF PRESENT ILLNESS: This is a very pleasant 42-year-old female with history of hidradenitis suppurativa, who comes in to [facility] and was noted to have redness and drainage of I believe more from the right axilla and lower abdomen wounds. She has history of hidradenitis suppurativa and surgery it looks like in the past for it. It looks like she was on antibiotics without improvement. The patient was admitted for antibiotics and debridement. The patient is status post right axilla and lower abdominal wound debridement and closure. Culture done on admission, unclear where it was from that showed methicillin-sensitive Staphylococcus aureus and coagulase-negative Staph. The patient now has been having fevers and infectious disease consultation was requested. Urinalysis was done and blood cultures were done as well as urine culture. I called the laboratory and urinalysis had 2+ leukocyte esterase, moderate bacteria, 15-20 white blood cells, and positive nitrite. The patient likely has urinary tract infection. Antibiotics will be changed to vancomycin and Rocephin. She was on Ancef which was discontinued. We will continue vancomycin and Rocephin to cover the wounds and also the urinary tract infection. Urine culture has been ordered and is pending as well as blood cultures. Chest x-ray has also been ordered. MAR was noted. Orders were noted. Notes were reviewed. Case was discussed with RN. Ultrasound of the lower extremities has also been ordered. PAST MEDICAL HISTORY: The patient's past medical history includes history of the following. The patient has past medical history of hidradenitis suppurativa. She has history of hypertension, history of surgeries for the hidradenitis in the past, history of SVT and tachycardia, history of GERD, anemia, and fibromyalgia. MEDICATIONS: Upon reviewing the MAR, she is on the following medications. She is on Neosporin. She was on Ancef which I discontinued that and put on vancomycin and Rocephin. She is on Apresoline. She is on Dilaudid. She is on MiraLAX and Narcan. She is on Mucinex, Dulcolax, heparin, Zofran, Reglan, Tylenol, metoprolol, Benadryl, docusate, Zyrtec, Protonix, zolpidem, and Mylanta. Antibiotics, she was started on vancomycin and Rocephin. I discontinued the cefazolin. ALLERGIES: Include celecoxib. SOCIAL HISTORY: Negative for smoking, alcohol, or drug abuse. FAMILY HISTORY: Noncontributory. REVIEW OF SYSTEMS: CONSTITUTIONAL: The patient has generalized weakness and fatigue. She had fever last night as high as 102.6. She is certainly having low-grade temperatures today. No chills at this time. HEAD AND NECK: No head pain or neck pain. She has generalized fatigue. CARDIOVASCULAR: No chest pain or palpitations. GASTROINTESTINAL: No nausea, vomiting, or diarrhea. GENITOURINARY: She did have a Hale that was removed. PULMONARY: No congestion, shortness of breath, or hemoptysis. No secretions. SKIN: No rash or itching. EXTREMITIES: No extremity pain. Her wound, her pain is controlled at this time. No swelling. No pain. NEUROLOGICAL: No seizures. PHYSICAL EXAMINATION: VITAL SIGNS: T-max is 102.6, currently temperature 98.8, pulse rate 76, respirations 17, blood pressure 111/61, and saturation 93% on room air. GENERAL: Alert, responsive, in no acute distress. HEAD AND NECK: Oral exam, no thrush. Eye exam, no icterus. Normocephalic. No neck stiffness. Neck is supple. HEART: Regular. No gallop or murmur. ABDOMEN: Soft. Positive bowel sounds. Nontender. LUNGS: Clear bilaterally. No rhonchi or rales. Decrease in breath sounds. MUSCULOSKELETAL: There is no effusion. Legs are without cellulitis. PERIPHERAL VASCULAR: No cyanosis or gangrene. SKIN: No other rash noted. Wounds are covered at this time, surgically covered. I discussed with nursing staff, these seemed to be intact. No evidence of significant drainage. Surgery is following on the wounds. GENITOURINARY: She had a Hale that was removed. LINE SITES: Without phlebitis. She has peripheral IV, no phlebitis noted. NEUROLOGICAL: Intact. Alert and oriented x3. LABORATORY AND DIAGNOSTIC DATA: Laboratory data are as follows. Urinalysis is pending here in the computer; however, I called the laboratory myself and they stated that she was nitrite positive, 2+ leukocyte esterase, 15-20 white blood cells, and moderate bacteria. Urine culture is pending. Blood culture is pending. Chest x-ray has been ordered. Ultrasound of the lower extremities is pending at this time. Blood cultures previously on 07/22/2017, negative. Wound culture grew out methicillin-sensitive Staphylococcus aureus and coagulase-negative Staph, it is unclear where it was from. It is either probably the axilla or the lower abdominal wounds where she came in with infection. Creatinine is normal at 0.8. White count 15.0 and hemoglobin 12.4. ASSESSMENT AND PLAN: 1. The patient has postoperative fevers and leukocytosis with positive urinalysis and has positive urinary tract infection. She is status post right axilla and lower abdominal wound infection, it looks like abscess and cellulitis, status post debridement and closure. Wound culture has grown out methicillin-sensitive Staphylococcus aureus and coagulase-negative Staphylococcus, this was done on admission. Continue vancomycin and Rocephin to cover Staphylococcus aureus and also gram-negative organisms for positive urinary tract infection. Continue vancomycin and Rocephin. Check chest x-ray, urine culture, blood culture, labs, and ultrasound of the lower extremities. Continue antibiotics and watch the patient clinically. 2. Hidradenitis suppurativa, status post right axilla and lower abdominal wound infection, abscess, cellulitis, debridement and closure. 3. Hypertension. 4. Supraventricular tachycardia, tachycardia history. 5. History of fibromyalgia. 6. Gastroesophageal reflux disease. 7. Anemia. 8. Pain management. 9. Allergies to celecoxib. 10. Case discussed with the RN. 11. MAR was noted. 12. Family history noncontributory. 13. Social history negative. 14. Continue treatment per primary consultants. 15. Wound care per surgery. 16. Case was discussed with the patient and her and also communicated with Dr. Leone. Yaneli Garcia M.D. DR: SHELLY JOB#: [id number] CC: NEL
[2017-07-29 00:19] VITALS: BP 118/61
[2017-07-29 04:00] VITALS: BP 121/73
[2017-07-29 06:17] LABS: MEAN CORPUSCULAR HEMOGLOBIN 28.8 PG (27.0-31.0); MEAN CORPUSCULAR HGB CONC 32.8 G/DL (32.0-36.0); MEAN CORPUSCULAR VOLUME 88 FL (80-99); PLATELET COUNT 351 K/UL (150-450); RED BLOOD COUNT 4.05 M/UL (4.20-5.40)
[2017-07-29] MEDS: PCA shift volume MISC SCH ×2 (07:00→19:00)
[2017-07-29 08:00] VITALS: BP 130/64
[2017-07-29] MEDS: Metoprolol Tartrate 50mg tab ORAL SCH ×2 (08:37→20:58)
[2017-07-29] MEDS: Miralax 17gm pkt ORAL SCH (08:37)
[2017-07-29] MEDS: Docusate 100mg cap ORAL SCH ×2 (08:37→20:58)
[2017-07-29] MEDS: Vancomycin 1500mg IVPB SCH ×2 (08:37→20:35)
[2017-07-29] MEDS: Heparin 5000 units/ml inj SUBQ SCH ×2 (08:44→21:05)
--- NOTE | 2017-07-29 08:53 | Cardiac Electrophysiology PN ---
Assessment/Plan Assessment/Plan 1. History of supraventricular tachycardia. No recurrence on Lopressor 50 bid. 2. Hypertension, On Lopressor 50 bid 3. Transient episode of shortness of breath and cough that was completely resolved. EKG is completely normal. echocardiogram was normal. 4. Hydradenitis of the Right axilla and lowed abdomen, s/p surgery. Doing well. Still has the drains. DW RN and at bedside. Subjective Subjective Comfortable in NAD. No CP or palpitation.Still has the drains. and RN at bedside. Objective Last 24 Hour Vital Signs Date Time Temp Pulse Resp B/P (MAP) Pulse Ox O2 Delivery O2 Flow Rate FiO2 07/29/17 08:37 84 130/64 07/29/17 04:00 99.3 81 17 121/73 97 Room Air 07/29/17 04:00 20 07/29/17 00:19 98.8 70 19 118/61 94 Room Air 07/29/17 00:00 20 07/28/17 22:13 98.9 07/28/17 20:51 101.9 93 21 124/60 96 Room Air 07/28/17 20:42 93 124/60 07/28/17 20:13 20 07/28/17 16:19 98.8 07/28/17 16:00 20 07/28/17 16:00 98.8 76 17 111/61 93 Room Air 07/28/17 13:55 74 18 111/59 94 Room Air 07/28/17 12:00 22 07/28/17 12:00 97.1 80 16 63/ 96 Nasal Cannula 3.0 Laboratory Tests Test 07/28/17 16:55 07/29/17 05:20 Urine Color Pale yellow Urine Appearance Cloudy Urine pH 6.5 (4.5-8.0) Urine Specific [place] 1.010 (1.005-1.035) Urine Protein Negative (NEGATIVE) Urine Glucose (UA) Negative (NEGATIVE) Urine Ketones Negative (NEGATIVE) Urine Occult Blood 5+ (NEGATIVE) H Urine Nitrite Positive (NEGATIVE) H Urine Bilirubin Negative (NEGATIVE) Urine Urobilinogen Normal MG/DL (0.0-1.0) Urine Leukocyte Esterase 2+ (NEGATIVE) H Urine RBC 5-10 /HPF (0 - 2) H Urine WBC 15-20 /HPF (0 - 2) H Urine Squamous Epithelial Cells Moderate /LPF (NONE/OCC) H Urine Bacteria Moderate /HPF (NONE) H White Blood Count 18.0 K/UL (4.8-10.8) H Red Blood Count 4.05 M/UL (4.20-5.40) L Hemoglobin 11.7 G/DL (12.0-16.0) L Hematocrit 35.6 % (37.0-47.0) L Mean Corpuscular Volume 88 FL (80-99) Mean Corpuscular Hemoglobin 28.8 PG (27.0-31.0) Mean Corpuscular Hemoglobin Concent 32.8 G/DL (32.0-36.0) Red Cell Distribution Width 13.0 % (11.6-14.8) Platelet Count 351 K/UL (150-450) Mean Platelet Volume 6.0 FL (6.5-10.1) L Neutrophils (%) (Auto) % (45.0-75.0) Lymphocytes (%) (Auto) % (20.0-45.0) Monocytes (%) (Auto) % (1.0-10.0) Eosinophils (%) (Auto) % (0.0-3.0) Basophils (%) (Auto) % (0.0-2.0) Neutrophils % (Manual) Pending Lymphocytes % (Manual) Pending Platelet Estimate Pending Platelet Morphology Pending Microbiology Date/Time Source Procedure Growth Status 07/28/17 16:55 Urine,Clean Catch Urine Culture - Preliminary Gram Negative Bacillus 1 Resulted Objective HEAD AND NECK: No JVD. LUNGS: Clear. CARDIOVASCULAR: Regular S1 and S2 with no gallop or murmur. ABDOMEN: Soft and nontender. Lower abdomen drains present EXTREMITIES: Right axilla s/p Surgery with drain ALEJANDRA BUCHANAN Jul 29, 2017 08:53
[2017-07-29] MEDS ORDERED: Naproxen 500mg tab ORAL PRN ×2 (09:15→11:15)
[2017-07-29] MEDS: Neosporin Oint 15gm TOPIC SCH ×2 (09:32→18:06)
[2017-07-29 10:13] LABS: BAND NEUTROPHILS % (MANUAL) 0 % (0-8); BASOPHILS % (MANUAL) 0 % (0-2); EOSINOPHILS % (MANUAL) 1 % (0-3); LYMPHOCYTES % (MANUAL) 14 % (20-45); NEUTROPHILS % (MANUAL) 83 % (45-75); PLATELET ESTIMATE ADEQUATE; PLATELET MORPHOLOGY NORMAL; TOTAL CELLS COUNTED 100
--- NOTE | 2017-07-29 10:19 | General Progress Note ---
Progress Note Progress Note Pt seen and examined. POD # 4 from wound closures. WBC up to 18 and fevers last night. UTI identified. Gram negative rods. Mild cellulitis on abdomen. Will continue Vanco and start Zosyn. Will continue to observe. CATIA Gruber MD Jul 29, 2017 10:19
[2017-07-29] MEDS: Piperacillin/Tazobactam 3.375 GM in D5W 55 ML IVPB SCH ×2 (11:51→19:00)
[2017-07-29 13:00] VITALS: BP 110/63
[2017-07-29] MEDS: Mylanta II UD 30ml ORAL PRN (13:05)
[2017-07-29] MEDS ORDERED: PCA HYDROmorphone 1mg/ml 30 ML IV PRN (15:00)
[2017-07-29] MEDS ORDERED: Rate Change PCA 1 Each MISC PRN (15:00)
--- NOTE | 2017-07-29 15:09 | Diagnostic Imaging Report ---
Indication: Cough Comparison: 07/22/17 A single view chest radiograph was obtained. Findings: Cardiomediastinal appearance is within normal limits for age. Pulmonary vascularity is appropriate. The diaphragmatic contour is smooth and costophrenic angles are sharp. No pleural effusions are identified. The bones are unremarkable. Impression: No acute findings
[2017-07-29 16:00] VITALS: BP 117/61
[2017-07-29] MEDS ORDERED: Milk of Magnesia 30ml Ud ORAL ONE (16:00)
[2017-07-29] MEDS: Sennosides 8.6mg ORAL SCH (16:26)
[2017-07-29 20:00] VITALS: BP 127/65
--- NOTE | 2017-07-29 20:36 | Infectious Diseases Prog Note ---
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 Leone, Dr. Lloyd and consultants 4) wound care per surgery 5) d/w Dr. Leone 6) orders entered and noted Subjective Constitutional: Reports: fatigue, Denies: fever HEENT: Denies: congestion Respiratory: Denies: shortness of breath Cardiovascular: Denies: chest pain Gastrointestinal/Abdominal: Denies: nausea, vomiting, diarrhea Genitourinary: Reports: other - no yañez Neurologic: Denies: headache Psychiatric: Denies: depression Skin: Denies: rash Hematologic: Denies: bleeding Musculoskeletal: Denies: pain Allergies: Coded Allergies: CELECOXIB (Verified Allergy, Unknown, 07/22/17) Objective Vital Signs Last 24 Hour Vital Signs Date Time Temp Pulse Resp B/P (MAP) Pulse Ox O2 Delivery O2 Flow Rate FiO2 07/29/17 20:00 20 07/29/17 16:00 97.5 80 17 117/61 97 Room Air 07/29/17 16:00 20 07/29/17 13:00 98.5 84 17 110/63 95 Room Air 07/29/17 12:00 20 07/29/17 08:37 84 130/64 07/29/17 08:00 98.2 84 17 130/64 94 Room Air 07/29/17 08:00 20 07/29/17 04:00 99.3 81 17 121/73 97 Room Air 07/29/17 04:00 20 07/29/17 00:19 98.8 70 19 118/61 94 Room Air 07/29/17 00:00 20 07/28/17 22:13 98.9 07/28/17 20:51 101.9 93 21 124/60 96 Room Air 07/28/17 20:42 93 124/60 Height (Feet): 5 Height (Inches): 9.00 Weight (Pounds): 280 General Appearance: no acute distress HEENT: normocephalic, atraumatic, anicteric, mucous membranes moist Respiratory/Chest: lungs clear, normal breath sounds, no respiratory distress, no accessory muscle use Cardiovascular: normal rate, regular rhythm, no gallop/murmur Abdomen: normal bowel sounds, soft, non tender, no organomegaly, non distended Genitourinary: other - no yañez Extremities: no cyanosis Skin: no rash, other - wounds covered Neurologic/Psychiatric: political science research assistant II-XII grossly normal, alert, oriented x 3, responsive Lymphatic: no neck adenopathy Musculoskeletal: no effusion Objective chest x-ray - negative for pna Microbiology Date/Time Source Procedure Growth Status 07/22/17 12:30 Blood Blood Culture - Final NO GROWTH AFTER 5 DAYS Complete 07/22/17 11:49 Wound Gram Stain - Final Complete 07/22/17 11:49 Wound Culture - Final Staphylococcus Aureus Staphylococcus Sp Coag Neg Complete 07/28/17 16:55 Urine,Clean Catch Urine Culture - Preliminary Gram Negative Bacillus 1 Resulted Microbiology Date/Time Source Procedure Growth Status 07/28/17 16:55 Urine,Clean Catch Urine Culture - Preliminary Gram Negative Bacillus 1 Resulted Laboratory Tests Test 07/29/17 05:20 07/29/17 19:20 White Blood Count 18.0 K/UL (4.8-10.8) H Red Blood Count 4.05 M/UL (4.20-5.40) L Hemoglobin 11.7 G/DL (12.0-16.0) L Hematocrit 35.6 % (37.0-47.0) L Mean Corpuscular Volume 88 FL (80-99) Mean Corpuscular Hemoglobin 28.8 PG (27.0-31.0) Mean Corpuscular Hemoglobin Concent 32.8 G/DL (32.0-36.0) Red Cell Distribution Width 13.0 % (11.6-14.8) Platelet Count 351 K/UL (150-450) Mean Platelet Volume 6.0 FL (6.5-10.1) L Neutrophils (%) (Auto) % (45.0-75.0) Lymphocytes (%) (Auto) % (20.0-45.0) Monocytes (%) (Auto) % (1.0-10.0) Eosinophils (%) (Auto) % (0.0-3.0) Basophils (%) (Auto) % (0.0-2.0) Differential Total Cells Counted 100 Neutrophils % (Manual) 83 % (45-75) H Lymphocytes % (Manual) 14 % (20-45) L Monocytes % (Manual) 2 % (1-10) Eosinophils % (Manual) 1 % (0-3) Basophils % (Manual) 0 % (0-2) Band Neutrophils 0 % (0-8) Platelet Estimate Adequate Platelet Morphology Normal Red Blood Cell Morphology Normal Vancomycin Level Trough 9.1 ug/mL (5.0-12.0) Current Medications Medications (Trade) Dose Ordered Sig/Sreedhar Route PRN Reason Start Time Stop Time Status Last Admin Dose Admin Acetaminophen (Tylenol) 650 mg Q4H PRN ORAL FEVER 07/25/17 09:00 08/24/17 08:59 07/28/17 21:14 Al Hydroxide/Mg Hydroxide (Mylanta II) 30 ml Q6H PRN ORAL dyspepsia 07/22/17 13:30 08/21/17 13:29 07/29/17 13:05 Bisacodyl (Dulcolax) 10 mg DAILYPRN PRN RECTAL Constipation 07/26/17 13:30 08/25/17 13:29 Bisacodyl (Dulcolax) 10 mg DAILYPRN PRN RECTAL Constipation 2ND LINE AGENT 07/29/17 15:45 08/28/17 15:44 Cetirizine HCl (ZyrTEC) 10 mg QPM ORAL 07/22/17 16:30 08/21/17 16:29 07/29/17 16:26 Dextrose (Dextrose 50%) STAT PRN IV Hypoglycemia 07/22/17 13:30 08/21/17 13:29 Diphenhydramine HCl (Benadryl) 12.5 mg Q6H PRN IVP Itching/Pruritis 07/23/17 09:00 08/22/17 08:59 07/26/17 23:05 Diphenhydramine HCl (Benadryl) 25 mg Q6H PRN ORAL Itching/Pruritis 07/22/17 13:30 08/21/17 13:29 07/27/17 17:00 Docusate Sodium (Colace) 100 mg EVERY 12 HOURS ORAL 07/22/17 21:00 08/21/17 20:59 07/29/17 08:37 Guaifenesin (Mucinex ER) 600 mg TWICE A DAY PRN ORAL cough, congestion 07/26/17 13:30 08/25/17 13:29 07/26/17 17:19 Heparin Sodium (Porcine) (Heparin 5000 units/ml) 5,000 units EVERY 12 HOURS SUBQ 07/25/17 21:00 08/24/17 20:59 07/29/17 08:44 Hydralazine HCl (Apresoline) 10 mg Q6H PRN ORAL SBP > 160 07/27/17 16:45 08/26/17 16:44 07/27/17 17:01 Hydromorphone HCl 30 ml @ 0 mls/hr Q24H PRN IV For Pain 07/29/17 15:00 07/31/17 14:59 07/29/17 16:08 Hydromorphone HCl (Dilaudid) 2 mg Q4H PRN IVP Moderate Pain (Pain Scale 4-6) 07/29/17 15:00 07/31/17 14:59 Hydromorphone HCl (Dilaudid) 2 mg q3h PRN SUBQ Severe Pain (Pain Scale 7-10) 07/29/17 15:00 07/31/17 14:59 Metoclopramide HCl (Reglan) 10 mg Q6H PRN IVP Nausea & Vomiting 07/25/17 09:00 08/24/17 08:59 07/28/17 12:50 Metoprolol Tartrate (Lopressor) 50 mg Q12HR ORAL 07/24/17 21:00 08/23/17 20:59 07/29/17 08:37 Miscellaneous Medication (ASSISTANT MERCHANDISE MANAGER Rate Change) 1 ea DAILYPRN PRN MISC rate change 07/29/17 15:00 07/31/17 14:59 Miscellaneous Medication (ASSISTANT MERCHANDISE MANAGER shift volume) 1 ea Q12HR@0700,1900 MISC 07/29/17 19:00 07/31/17 18:59 07/29/17 19:00 Naloxone HCl (Narcan) 0.1 mg STAT PRN IV RR<10,SBP<90,OR NON-RESPONSIVE 07/27/17 09:00 08/26/17 08:59 Naproxen (Naprosyn) 500 mg BIDPRN PRN ORAL For Headache 07/29/17 11:15 08/28/17 11:14 07/29/17 11:51 Neomycin/ Polymyxin/ Bacitracin (Neosporin Oint 15gm) 1 applic BID TOPIC 07/28/17 11:00 08/27/17 10:59 07/29/17 18:06 Ondansetron HCl (Zofran) 4 mg Q6H PRN IVP Nausea & Vomiting 07/25/17 09:00 08/24/17 08:59 07/28/17 11:55 Pantoprazole (Protonix) 40 mg BEFORE DINNER ORAL 07/22/17 16:30 08/22/17 08:59 07/29/17 16:25 Piperacillin Sod/ Tazobactam Sod 3.375 gm/Dextrose 55 ml @ 13.75 mls/ hr Q8HR IVPB 07/29/17 22:00 08/05/17 21:59 Polyethylene Glycol (Miralax) 17 gm DAILY ORAL 07/27/17 09:00 08/26/17 08:59 07/29/17 08:37 Sennosides (Senokot) 17.2 mg DAILY ORAL 07/29/17 16:00 08/28/17 15:59 07/29/17 16:26 Sodium Chloride 1,000 ml @ 75 mls/hr [id number] IV 07/28/17 15:45 08/27/17 15:44 07/29/17 05:20 Vancomycin HCl (Vanco rx to dose) 1 ea DAILY PRN MISC Per rx protocol 07/28/17 18:15 08/27/17 18:14 Vancomycin HCl/ Dextrose 250 ml @ 125 mls/hr Q12H IVPB 07/28/17 20:00 08/02/17 19:59 07/29/17 08:37 RADHA PARRA Jul 29, 2017 20:36
[2017-07-30] MEDS: Piperacillin/Tazobactam 3.375 GM in D5W 55 ML IVPB SCH ×4 (00:06→22:17)
[2017-07-30 04:00] VITALS: BP 126/67
[2017-07-30] MEDS: Vancomycin 1gm/D5W 275ml IVPB SCH ×6 (04:02→20:32)
[2017-07-30] MEDS: PCA shift volume MISC SCH (07:11)
--- NOTE | 2017-07-30 07:35 | General Progress Note ---
Assessment/Plan Problem List: (1) Sepsis ICD Codes: A41.9 - Sepsis, unspecified organism SNOMED: 56374861 (2) UTI (urinary tract infection) ICD Codes: N39.0 - Urinary tract infection, site not specified SNOMED: 74013034 (3) Abscess ICD Codes: L02.91 - Cutaneous abscess, unspecified SNOMED: 162402681 (4) Hidradenitis suppurativa ICD Codes: L73.2 - Hidradenitis suppurativa SNOMED: 31326944 (5) Paroxysmal atrial tachycardia ICD Codes: I47.1 - Supraventricular tachycardia SNOMED: 105943902 (6) HTN (hypertension) ICD Codes: I10 - Essential (primary) hypertension SNOMED: 21334744 (7) GERD (gastroesophageal reflux disease) ICD Codes: K21.9 - Gastro-esophageal reflux disease without esophagitis SNOMED: 083744163 (8) Acute blood loss anemia ICD Codes: D62 - Acute posthemorrhagic anemia SNOMED: 857803237 Status: stable Assessment/Plan Appreciate plastic surgery rec's s/p right axillary and lower abdominal wall debridement with flap elevation on 07/23/17 s/p closure of right axillary and abdominal wounds on 07/25/17 Cont IV abx--expanded to vanco and zosyn per ID U/A c/w UTI F/u urine cx-->100K GNR F/u repeat blood culture ID consulted, appreciate rec's Post operative recommendations include: - encourage mobilization/ambulation - encourage incentive spirometry to optimize pulmonary hygiene - DVT/GI prophylaxis as appropriate--SCDs, HSQ - pain control, supportive care, bowel regimen Appreciate cardiology rec's TTE unremarkable Cont home MTP Cont home PPI Mucinex PRN DVT ppx: SCDs, HSQ as pt is now moderate risk postop A total of 31m2n of extra time was spent in addition to normal encounter time for care/coordination and counseling. D/w pt/family, RN, SW/CM, surgery, cardiology regarding mgmt and dispo Subjective Date patient seen: Jul 29, 2017 Time patient seen: 13:00 ROS Limited/Unobtainable: No Constitutional: Reports: fever HEENT: Reports: no symptoms Cardiovascular: Reports: no symptoms Respiratory: Reports: no symptoms Gastrointestinal/Abdominal: Reports: no symptoms Genitourinary: Reports: burning Neurologic/Psychiatric: Reports: no symptoms Endocrine: Reports: no symptoms Hematologic/Lymphatic: Reports: no symptoms Allergies: Coded Allergies: CELECOXIB (Verified Allergy, Unknown, 07/22/17) All Systems: reviewed and negative except above Subjective No acute o/n events Fever to 101.9 last night, afebrile this AM s/p right axillary and lower abdominal wall debridement with flap elevation POD# 6 s/p closure of right axillary and abdominal wounds POD#4 WBC rising to 18K Hale removed yesterday Urine cx shows >100K GNR Pt states feeling better this AM. Pain controlled, denies f/c, d/c, chest pain, palpitations. Some dysuria No BM yet Ambulating Objective Last 24 Hour Vital Signs Date Time Temp Pulse Resp B/P (MAP) Pulse Ox O2 Delivery O2 Flow Rate FiO2 07/30/17 04:00 20 07/30/17 04:00 98.8 67 18 126/67 99 Room Air 07/30/17 00:00 20 07/29/17 20:58 75 127/65 07/29/17 20:00 99.5 75 18 127/65 96 Room Air 07/29/17 20:00 20 07/29/17 16:00 97.5 80 17 117/61 97 Room Air 07/29/17 16:00 20 07/29/17 13:00 98.5 84 17 110/63 95 Room Air 07/29/17 12:00 20 07/29/17 08:37 84 130/64 07/29/17 08:00 98.2 84 17 130/64 94 Room Air 07/29/17 08:00 20 Laboratory Tests 07/29/17 19:20: Vancomycin Level Trough 9.1 Height (Feet): 5 Height (Inches): 9.00 Weight (Pounds): 280 Objective General: alert, cooperative, no distress, appears stated age Head: normocephalic, without obvious abnormality, atraumatic Eyes: conjunctivae/corneas clear. PERRL, EOM's intact Throat: lips, mucosa, and tongue normal. MMM Neck: supple, symmetrical, trachea midline, and no JVD Lungs: clear to auscultation bilaterally Heart: regular rate and rhythm, S1, S2 normal, no murmur, click, rub or gallop Abdomen: soft, non-tender, non-distended, bowel sounds normal; no masses or organomegaly Extremities: extremities normal, atraumatic, no cyanosis or edema Pulses: 2+ and symmetric Skin: Dressing c/d/i Neurologic: grossly normal, no focal deficits Vasu Bowen M.D. Jul 30, 2017 07:35
[2017-07-30 08:00] VITALS: BP 123/65
[2017-07-30 08:21] LABS: BASOPHILS % (AUTO) 0.6 % (0.0-2.0); LYMPHOCYTES % (AUTO) 13.2 % (20.0-45.0); MEAN CORPUSCULAR HEMOGLOBIN 29.2 PG (27.0-31.0); MEAN CORPUSCULAR HGB CONC 33.3 G/DL (32.0-36.0); MEAN CORPUSCULAR VOLUME 88 FL (80-99); MEAN PLATELET VOLUME 5.8 FL (6.5-10.1); MONOCYTES % (AUTO) 6.1 % (1.0-10.0); NEUTROPHILS % (AUTO) 74.1 % (45.0-75.0); PLATELET COUNT 382 K/UL (150-450); RED BLOOD COUNT 3.82 M/UL (4.20-5.40); RED CELL DISTRIBUTION WIDTH 13.2 % (11.6-14.8); WHITE BLOOD COUNT 10.9 K/UL (4.8-10.8)
[2017-07-30 08:31] LABS: ANION GAP 6 mmol/L (5-15); CALCIUM 8.7 MG/DL (8.5-10.1); CARBON DIOXIDE 30 MMOL/L (21-32); CHLORIDE 104 MMOL/L (98-107); CREATININE 0.7 MG/DL (0.55-1.30); GLOMERULAR FILTRATION RATE > 60 mL/min (>60); POTASSIUM 3.9 MMOL/L (3.5-5.1); SODIUM 140 MMOL/L (136-145)
[2017-07-30] MEDS: Neosporin Oint 15gm TOPIC SCH ×2 (10:03→18:00)
[2017-07-30] MEDS: Miralax 17gm pkt ORAL SCH (10:03)
[2017-07-30] MEDS: Sennosides 8.6mg ORAL SCH (10:03)
[2017-07-30] MEDS: Docusate 100mg cap ORAL SCH ×2 (10:03→22:17)
[2017-07-30] MEDS: Metoprolol Tartrate 50mg tab ORAL SCH ×2 (10:04→22:17)
[2017-07-30] MEDS: Heparin 5000 units/ml inj SUBQ SCH ×2 (10:07→22:20)
[2017-07-30] MEDS: Norco 10mg/325mg tab ORAL PRN ×3 (11:25→20:31)
[2017-07-30 12:00] VITALS: BP 112/75
--- NOTE | 2017-07-30 14:10 | General Progress Note ---
Assessment/Plan Problem List: (1) Sepsis ICD Codes: A41.9 - Sepsis, unspecified organism SNOMED: 03985727 (2) UTI (urinary tract infection) Assessment & Plan: 2/2 pseudomonas ICD Codes: N39.0 - Urinary tract infection, site not specified SNOMED: 04058338 (3) Abscess ICD Codes: L02.91 - Cutaneous abscess, unspecified SNOMED: 853123085 (4) Hidradenitis suppurativa ICD Codes: L73.2 - Hidradenitis suppurativa SNOMED: 33203083 (5) Paroxysmal atrial tachycardia ICD Codes: I47.1 - Supraventricular tachycardia SNOMED: 937682163 (6) HTN (hypertension) ICD Codes: I10 - Essential (primary) hypertension SNOMED: 74113391 (7) GERD (gastroesophageal reflux disease) ICD Codes: K21.9 - Gastro-esophageal reflux disease without esophagitis SNOMED: 450768681 (8) Acute blood loss anemia ICD Codes: D62 - Acute posthemorrhagic anemia SNOMED: 526988937 Status: stable Assessment/Plan Appreciate plastic surgery rec's s/p right axillary and lower abdominal wall debridement with flap elevation on 07/23/17 s/p closure of right axillary and abdominal wounds on 07/25/17 Cont IV abx--expanded to vanco and zosyn per ID U/A c/w UTI F/u urine cx-->100K pseudomonas F/u repeat blood culture--ngtd ID consulted, appreciate rec's Post operative recommendations include: - encourage mobilization/ambulation - encourage incentive spirometry to optimize pulmonary hygiene - DVT/GI prophylaxis as appropriate--SCDs, HSQ - pain control, supportive care, bowel regimen Appreciate cardiology rec's TTE unremarkable Cont home MTP Cont home PPI Mucinex PRN Home health ordered for wound care Possible d/c tomororw DVT ppx: SCDs, HSQ as pt is now moderate risk postop A total of 31m2n of extra time was spent in addition to normal encounter time for care/coordination and counseling. D/w pt/family, RN, SW/CM, surgery, cardiology regarding mgmt and dispo Subjective Date patient seen: Jul 30, 2017 Time patient seen: 14:10 ROS Limited/Unobtainable: No Constitutional: Reports: no symptoms HEENT: Reports: no symptoms Cardiovascular: Reports: no symptoms Respiratory: Reports: no symptoms Gastrointestinal/Abdominal: Reports: no symptoms Genitourinary: Reports: no symptoms Neurologic/Psychiatric: Reports: no symptoms Endocrine: Reports: no symptoms Hematologic/Lymphatic: Reports: no symptoms Allergies: Coded Allergies: CELECOXIB (Verified Allergy, Unknown, 07/22/17) All Systems: reviewed and negative except above Subjective No acute o/n events Afebrile o/n s/p right axillary and lower abdominal wall debridement with flap elevation POD# 7 s/p closure of right axillary and abdominal wounds POD#5 WBC improved to 10.89K Urine cx shows >100K pseudomonas Pt states feeling better this AM. Pain controlled, denies f/c, d/c, chest pain, palpitations. +BM yesterday Ambulating Objective Last 24 Hour Vital Signs Date Time Temp Pulse Resp B/P (MAP) Pulse Ox O2 Delivery O2 Flow Rate FiO2 07/30/17 12:00 97.5 74 18 112/75 96 Room Air 07/30/17 10:04 75 123/65 07/30/17 08:00 97.5 75 16 123/65 98 Room Air 07/30/17 08:00 19 07/30/17 04:00 20 07/30/17 04:00 98.8 67 18 126/67 99 Room Air 07/30/17 00:00 20 07/29/17 20:58 75 127/65 07/29/17 20:00 99.5 75 18 127/65 96 Room Air 07/29/17 20:00 20 07/29/17 16:00 97.5 80 17 117/61 97 Room Air 07/29/17 16:00 20 Intake and Output 07/30/17 07/31/17 19:00 07:00 Intake Total 250 ml Balance 250 ml Intake Oral 250 ml # Voids 1 Laboratory Tests 07/29/17 19:20: Vancomycin Level Trough 9.1 07/30/17 07:05: White Blood Count 10.9H, Red Blood Count 3.82L, Hemoglobin 11.2L, Hematocrit 33.5L, Mean Corpuscular Volume 88, Mean Corpuscular Hemoglobin 29.2, Mean Corpuscular Hemoglobin Concent 33.3, Red Cell Distribution Width 13.2, Platelet Count 382, Mean Platelet Volume 5.8L, Neutrophils (%) (Auto) 74.1, Lymphocytes ( %) (Auto) 13.2L, Monocytes (%) (Auto) 6.1, Eosinophils (%) (Auto) 6.0H, Basophils (%) (Auto) 0.6, Sodium Level 140, Potassium Level 3.9, Chloride Level 104, Carbon Dioxide Level 30, Anion Gap 6, Blood Urea Nitrogen 11, Creatinine 0.7, Estimat Glomerular Filtration Rate > 60, Glucose Level 108H, Calcium Level 8.7 Height (Feet): 5 Height (Inches): 9.00 Weight (Pounds): 280 Objective General: alert, cooperative, no distress, appears stated age Head: normocephalic, without obvious abnormality, atraumatic Eyes: conjunctivae/corneas clear. PERRL, EOM's intact Throat: lips, mucosa, and tongue normal. MMM Neck: supple, symmetrical, trachea midline, and no JVD Lungs: clear to auscultation bilaterally Heart: regular rate and rhythm, S1, S2 normal, no murmur, click, rub or gallop Abdomen: soft, non-tender, non-distended, bowel sounds normal; no masses or organomegaly Extremities: extremities normal, atraumatic, no cyanosis or edema Pulses: 2+ and symmetric Skin: Dressing c/d/i Neurologic: grossly normal, no focal deficits Vasu Bowen M.D. Jul 30, 2017 14:10
[2017-07-30] MEDS ORDERED: CIPROFLOXACIN500 M2 ORAL (14:38)
[2017-07-30] MEDS ORDERED: CLINDAMYCIN HC300 MG ORAL (14:38)
[2017-07-30] MEDS ORDERED: ZOFRAN ODT4 MG ORAL (14:49)
--- NOTE | 2017-07-30 15:44 | Infectious Diseases Prog Note ---
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 Leone, Dr. Lloyd and consultants 4) wound care per surgery 5) watch labs periodically 6) orders entered and noted Subjective Constitutional: Denies: fever HEENT: Denies: congestion Respiratory: Denies: shortness of breath Cardiovascular: Denies: chest pain Gastrointestinal/Abdominal: Denies: nausea, vomiting, diarrhea Genitourinary: Denies: hematuria, other Neurologic: Denies: headache Psychiatric: Denies: depression Skin: Denies: rash Hematologic: Denies: bleeding Musculoskeletal: Denies: pain Allergies: Coded Allergies: CELECOXIB (Verified Allergy, Unknown, 07/22/17) Objective Vital Signs Last 24 Hour Vital Signs Date Time Temp Pulse Resp B/P (MAP) Pulse Ox O2 Delivery O2 Flow Rate FiO2 07/30/17 12:00 97.5 74 18 112/75 96 Room Air 07/30/17 10:04 75 123/65 07/30/17 08:00 97.5 75 16 123/65 98 Room Air 07/30/17 08:00 19 07/30/17 04:00 20 07/30/17 04:00 98.8 67 18 126/67 99 Room Air 07/30/17 00:00 20 07/29/17 20:58 75 127/65 07/29/17 20:00 99.5 75 18 127/65 96 Room Air 07/29/17 20:00 20 07/29/17 16:00 97.5 80 17 117/61 97 Room Air 07/29/17 16:00 20 Height (Feet): 5 Height (Inches): 9.00 Weight (Pounds): 280 General Appearance: no acute distress HEENT: normocephalic, atraumatic, anicteric, mucous membranes moist, EOMI, pharynx normal, supple, no JVD Respiratory/Chest: lungs clear, normal breath sounds, no respiratory distress, no accessory muscle use Cardiovascular: normal rate, regular rhythm, no gallop/murmur, no JVD Abdomen: normal bowel sounds, soft, non tender, no organomegaly, non distended Genitourinary: other - no yañez Extremities: no cyanosis Skin: no rash, other - wounds covered Neurologic/Psychiatric: animal care giver II-XII grossly normal, alert, responsive Lymphatic: no neck adenopathy Musculoskeletal: no effusion Objective chest x-ray - negative for pna Microbiology Date/Time Source Procedure Growth Status 07/28/17 15:50 Blood Blood Culture - Preliminary NO GROWTH AFTER 24 HOURS Resulted 07/28/17 15:45 Blood Blood Culture - Preliminary NO GROWTH AFTER 24 HOURS Resulted 07/28/17 16:55 Urine,Clean Catch Urine Culture - Final Pseudomonas Aeruginosa Complete Laboratory Tests Test 07/29/17 19:20 07/30/17 07:05 Vancomycin Level Trough 9.1 ug/mL (5.0-12.0) White Blood Count 10.9 K/UL (4.8-10.8) H Red Blood Count 3.82 M/UL (4.20-5.40) L Hemoglobin 11.2 G/DL (12.0-16.0) L Hematocrit 33.5 % (37.0-47.0) L Mean Corpuscular Volume 88 FL (80-99) Mean Corpuscular Hemoglobin 29.2 PG (27.0-31.0) Mean Corpuscular Hemoglobin Concent 33.3 G/DL (32.0-36.0) Red Cell Distribution Width 13.2 % (11.6-14.8) Platelet Count 382 K/UL (150-450) Mean Platelet Volume 5.8 FL (6.5-10.1) L Neutrophils (%) (Auto) 74.1 % (45.0-75.0) Lymphocytes (%) (Auto) 13.2 % (20.0-45.0) L Monocytes (%) (Auto) 6.1 % (1.0-10.0) Eosinophils (%) (Auto) 6.0 % (0.0-3.0) H Basophils (%) (Auto) 0.6 % (0.0-2.0) Sodium Level 140 MMOL/L (136-145) Potassium Level 3.9 MMOL/L (3.5-5.1) Chloride Level 104 MMOL/L (98-107) Carbon Dioxide Level 30 MMOL/L (21-32) Anion Gap 6 mmol/L (5-15) Blood Urea Nitrogen 11 mg/dL (7-18) Creatinine 0.7 MG/DL (0.55-1.30) Estimat Glomerular Filtration Rate > 60 mL/min (>60) Glucose Level 108 MG/DL (74-106) H Calcium Level 8.7 MG/DL (8.5-10.1) Current Medications Medications (Trade) Dose Ordered Sig/Sreedhar Route PRN Reason Start Time Stop Time Status Last Admin Dose Admin Acetaminophen (Tylenol) 650 mg Q4H PRN ORAL FEVER 07/25/17 09:00 08/24/17 08:59 07/28/17 21:14 Acetaminophen/ Hydrocodone Bitart ([place] 10/325) 1 ea Q4H PRN ORAL PAIN 4-10 07/30/17 10:00 08/06/17 09:59 07/30/17 11:25 Al Hydroxide/Mg Hydroxide (Mylanta II) 30 ml Q6H PRN ORAL dyspepsia 07/22/17 13:30 08/21/17 13:29 07/29/17 13:05 Bisacodyl (Dulcolax) 10 mg DAILYPRN PRN RECTAL Constipation 07/26/17 13:30 08/25/17 13:29 Bisacodyl (Dulcolax) 10 mg DAILYPRN PRN RECTAL Constipation 2ND LINE AGENT 07/29/17 15:45 08/28/17 15:44 Cetirizine HCl (ZyrTEC) 10 mg QPM ORAL 07/22/17 16:30 08/21/17 16:29 07/29/17 16:26 Dextrose (Dextrose 50%) STAT PRN IV Hypoglycemia 07/22/17 13:30 08/21/17 13:29 Diphenhydramine HCl (Benadryl) 25 mg Q6H PRN ORAL Itching/Pruritis 07/22/17 13:30 08/21/17 13:29 07/27/17 17:00 Docusate Sodium (Colace) 100 mg EVERY 12 HOURS ORAL 07/22/17 21:00 08/21/17 20:59 07/30/17 10:03 Guaifenesin (Mucinex ER) 600 mg TWICE A DAY PRN ORAL cough, congestion 07/26/17 13:30 08/25/17 13:29 07/26/17 17:19 Heparin Sodium (Porcine) (Heparin 5000 units/ml) 5,000 units EVERY 12 HOURS SUBQ 07/25/17 21:00 08/24/17 20:59 07/30/17 10:07 Hydralazine HCl (Apresoline) 10 mg Q6H PRN ORAL SBP > 160 07/27/17 16:45 08/26/17 16:44 07/27/17 17:01 Metoclopramide HCl (Reglan) 10 mg Q6H PRN IVP Nausea & Vomiting 07/25/17 09:00 08/24/17 08:59 07/28/17 12:50 Metoprolol Tartrate (Lopressor) 50 mg Q12HR ORAL 07/24/17 21:00 08/23/17 20:59 07/30/17 10:04 Naproxen (Naprosyn) 500 mg BIDPRN PRN ORAL For Headache 07/29/17 11:15 08/28/17 11:14 07/29/17 11:51 Neomycin/ Polymyxin/ Bacitracin (Neosporin Oint 15gm) 1 applic BID TOPIC 07/28/17 11:00 08/27/17 10:59 07/30/17 10:03 Ondansetron HCl (Zofran) 4 mg Q6H PRN IVP Nausea & Vomiting 07/25/17 09:00 08/24/17 08:59 07/30/17 06:33 Pantoprazole (Protonix) 40 mg BEFORE DINNER ORAL 07/22/17 16:30 08/22/17 08:59 07/29/17 16:25 Piperacillin Sod/ Tazobactam Sod 3.375 gm/Dextrose 55 ml @ 13.75 mls/ hr Q8HR IVPB 07/29/17 22:00 08/05/17 21:59 07/30/17 14:59 Polyethylene Glycol (Miralax) 17 gm DAILY ORAL 07/27/17 09:00 08/26/17 08:59 07/30/17 10:03 Sennosides (Senokot) 17.2 mg DAILY ORAL 07/29/17 16:00 08/28/17 15:59 07/30/17 10:03 Sodium Chloride 1,000 ml @ 75 mls/hr [id number] IV 07/28/17 15:45 08/27/17 15:44 07/29/17 05:20 Vancomycin HCl (Vanco rx to dose) 1 ea DAILY PRN MISC Per rx protocol 07/28/17 18:15 08/27/17 18:14 Vancomycin HCl 1 gm/Dextrose 275 ml @ 183.708 mls/hr Q8H IVPB 07/30/17 04:00 08/04/17 03:59 07/30/17 13:04 RADHA PARRA Jul 30, 2017 15:44
[2017-07-30 16:00] VITALS: BP 113/58
--- NOTE | 2017-07-30 18:57 | Cardiology Progress Note ---
Assessment/Plan Assessment/Plan psvt sepsis gerd htn seems to be doign well goign home soon bb to be continued bp is normal not febrile labs noted look good orthosttic vitals to be checked Subjective Cardiovascular: Reports: lightheadedness, Denies: chest pain, irregular heart rate, palpitations Respiratory: Denies: shortness of breath Gastrointestinal/Abdominal: Denies: abdominal pain Genitourinary: Denies: burning Objective Last 24 Hour Vital Signs Date Time Temp Pulse Resp B/P (MAP) Pulse Ox O2 Delivery O2 Flow Rate FiO2 07/30/17 16:00 99.2 69 17 113/58 97 Room Air 07/30/17 12:00 97.5 74 18 112/75 96 Room Air 07/30/17 10:04 75 123/65 07/30/17 08:00 97.5 75 16 123/65 98 Room Air 07/30/17 08:00 19 07/30/17 04:00 20 07/30/17 04:00 98.8 67 18 126/67 99 Room Air 07/30/17 00:00 20 07/29/17 20:58 75 127/65 07/29/17 20:00 99.5 75 18 127/65 96 Room Air 07/29/17 20:00 20 General Appearance: no apparent distress, alert, obese Neck: supple Cardiovascular: normal rate, regular rhythm Respiratory/Chest: lungs clear, normal breath sounds Abdomen: normal bowel sounds, non tender, soft Extremities: no swelling - pneumoatic stocking in palce Intake and Output 07/30/17 07/31/17 19:00 07:00 Intake Total 250 ml Balance 250 ml Intake Oral 250 ml # Voids 1 Laboratory Tests Test 07/29/17 19:20 07/30/17 07:05 Vancomycin Level Trough 9.1 ug/mL (5.0-12.0) White Blood Count 10.9 K/UL (4.8-10.8) H Red Blood Count 3.82 M/UL (4.20-5.40) L Hemoglobin 11.2 G/DL (12.0-16.0) L Hematocrit 33.5 % (37.0-47.0) L Mean Corpuscular Volume 88 FL (80-99) Mean Corpuscular Hemoglobin 29.2 PG (27.0-31.0) Mean Corpuscular Hemoglobin Concent 33.3 G/DL (32.0-36.0) Red Cell Distribution Width 13.2 % (11.6-14.8) Platelet Count 382 K/UL (150-450) Mean Platelet Volume 5.8 FL (6.5-10.1) L Neutrophils (%) (Auto) 74.1 % (45.0-75.0) Lymphocytes (%) (Auto) 13.2 % (20.0-45.0) L Monocytes (%) (Auto) 6.1 % (1.0-10.0) Eosinophils (%) (Auto) 6.0 % (0.0-3.0) H Basophils (%) (Auto) 0.6 % (0.0-2.0) Sodium Level 140 MMOL/L (136-145) Potassium Level 3.9 MMOL/L (3.5-5.1) Chloride Level 104 MMOL/L (98-107) Carbon Dioxide Level 30 MMOL/L (21-32) Anion Gap 6 mmol/L (5-15) Blood Urea Nitrogen 11 mg/dL (7-18) Creatinine 0.7 MG/DL (0.55-1.30) Estimat Glomerular Filtration Rate > 60 mL/min (>60) Glucose Level 108 MG/DL (74-106) H Calcium Level 8.7 MG/DL (8.5-10.1) Microbiology Date/Time Source Procedure Growth Status 07/28/17 15:50 Blood Blood Culture - Preliminary NO GROWTH AFTER 24 HOURS Resulted 07/28/17 15:45 Blood Blood Culture - Preliminary NO GROWTH AFTER 24 HOURS Resulted 07/28/17 16:55 Urine,Clean Catch Urine Culture - Final Pseudomonas Aeruginosa Complete FLORIN FU Jul 30, 2017 18:57
[2017-07-30 20:27] VITALS: BP 138/79
[2017-07-31 00:22] VITALS: BP 128/58
[2017-07-31] MEDS: Norco 10mg/325mg tab ORAL PRN ×3 (00:34→11:25)
[2017-07-31] MEDS: Mylanta II UD 30ml ORAL PRN (00:34)
[2017-07-31] MEDS: Vancomycin 1gm/D5W 275ml IVPB SCH ×4 (03:54→12:00)
[2017-07-31 04:46] VITALS: BP 114/59
[2017-07-31] MEDS: Piperacillin/Tazobactam 3.375 GM in D5W 55 ML IVPB SCH (06:17)
[2017-07-31 08:00] VITALS: BP 136/63
[2017-07-31] MEDS: Docusate 100mg cap ORAL SCH (09:40)
[2017-07-31] MEDS: Sennosides 8.6mg ORAL SCH (09:41)
[2017-07-31] MEDS: Miralax 17gm pkt ORAL SCH (09:41)
[2017-07-31] MEDS: Neosporin Oint 15gm TOPIC SCH (09:41)
[2017-07-31] MEDS: Metoprolol Tartrate 50mg tab ORAL SCH (09:41)
[2017-07-31] MEDS: Heparin 5000 units/ml inj SUBQ SCH (09:46)
[2017-07-31 12:39] VITALS: BP 124/69
[2017-07-31] MEDS ORDERED: Tubing IV Secondary IV ONE (13:40)
--- NOTE | 2017-07-31 18:31 | Discharge Summary ---
Discharge Summary Hospital Course Date of Admission Jul 22, 2017 at 12:23 Date of Discharge Jul 31, 2017 at 13:41 Admitting Diagnosis hidradenitis Reason for Hospitalization: abscess HPI 42y/o female with pmh of hidradenitis suppurative, paroxysmal atrial tachycardia , HTN, GERD who presents with worsening b/l axillary lesions and lower abdominal lesions. Pt notes worsening pain/swelling/redness/drainage from b/l axillary and lower abd. She has had this for many years. She had prior surgery on R axilla abt 1 yr and 10mo ago w/o much success. She has tried antibiotics without much effect. She denies f/c, n/v, d/c, chest pain, SOB, abd pain, dysuria. She has had general anesthesia before without complications. Able to walk a few blocks or climb a flight of stairs w/o symptoms of chest pain, SOB. She follows up with a cardiology regarding her Atach and it controlled on metoprolol. She has undergone cardiac eval including ECHO which has been unremarkable. Consultations Plastic surgery Procedures Right axillary and lower abdominal wall debridement with flap elevation on 07/23 Closure of right axillary and abdominal wounds on 07/25/17 Hospital Course Pt was admitted and continued on IV antibiotics. Pt underwent right axillary and lower abdominal wall debridement with flap elevation on 07/23/17, followed by closure of right axillary and abdominal wounds on 07/25/17. Pt tolerated procedure well. Hospital course complicate by fevers and leukocytosis. Pt's antibiotics expanded. Pt found to be in sepsis secondary to UTI (Hale catheter related) with urine culture showing Pseudomonas. Once wounds stable, sepsis improved and pain controlled, pt was discharged home with oral pain medications and oral antibiotics. Discharge Medications New Medications: Ciprofloxacin Hcl* (Ciprofloxacin Hcl*) 500 Mg Tablet 500 MG ORAL Q12H for 7 Days, #14 TAB 0 Refills Clindamycin Hcl (Clindamycin Hcl) 300 Mg Capsule 300 MG ORAL QID for 7 Days, #28 CAP Ondansetron Odt* (Zofran Odt*) 4 Mg Tab.rapdis 4 MG ORAL Q6H PRN, #30 TAB 0 Refills Continued Medications: Ascorbic Acid* (Vitamin C*) 500 Mg Tablet 500 MG ORAL, #30 TAB 0 Refills Cetirizine Hcl* (Zyrtec*) 10 Mg Tablet 10 MG ORAL DAILY, #30 TAB 0 Refills Guaifenesin/Pseudoephedrne Hcl (Mucinex D Er Tablet) 1 Each Tab.er.12h 1 EACH PO, TAB Metoprolol Tartrate (Metoprolol Tartrate) 25 Mg Tablet 25 MG ORAL DAILY, TAB Metoprolol Tartrate* (Metoprolol Tartrate*) 50 Mg Tablet 50 MG ORAL QPM, TAB Multivitamin/Iron/Folic Acid (Centrum Complete Multivit Tab) 1 Each Tablet 1 EACH PO, TAB Naproxen Sodium (Aleve) 220 Mg Capsule 220 MG PO, CAP Omeprazole Magnesium (Prilosec Otc) 20 Mg Tablet.dr 20 MG ORAL unknown , TAB Turmeric Root Extract (Turmeric) 500 Mg Capsule 500 MG PO TID, CAP Discharge Condition Upon Discharge: stable Discharge Disposition Patient was discharged to Home with home health Discharge Diagnoses: (1) Abscess (2) Hidradenitis suppurativa (3) Paroxysmal atrial tachycardia (4) HTN (hypertension) (5) GERD (gastroesophageal reflux disease) (6) UTI (urinary tract infection) (7) Sepsis (8) Acute blood loss anemia Vasu Bowen M.D. Jul 31, 2017 18:31
--- NOTE | 2017-08-04 10:18 | Diagnostic Imaging Report ---
APPROVED REPORT CPT Code: 36414 Present Symptoms Comments: Post Op R/O DVT BILATERAL: Imaging reveals a patent deep venous system bilaterally. There is no evidence of thrombus within the femoral, popliteal or tibial segments. The greater saphenous veins are also within normal limits. Doppler indicates normal spontaneous flow within these segments.
--- NOTE | 2017-08-06 11:30 | Operative Note - PDOC ---
Operative Note Operative Note Date of Operation/Procedure: Jul 23, 2017 Procedure: Abdominal tissue debridment and flap elevation with left axillary tissue excision and flap elevation Post-op Diagnosis: same as pre-op Surgeon: Veronica Shuttle Bus Driver: Prema Specimen: yes Complications: none Condition: stable Estimated Blood Loss: minimal Drains: none Implant(s) used?: No CATIA DELGADO Aug 06, 2017 11:30
== END 2017-07-31 13:41 | disposition home health service (06) | DRG 574 ==
LOC: EDBEDREQ 11:56 → EMR 12:20 → 3E 12:23 → EDBEDREQ 12:24 → 3E 14:49
PROC: 0JB80ZZ Excision of Abdomen Subcutaneous Tissue and Fascia, Open Approach (ICD-10-PCS; principal; 2017-07-23 09:00)
PROC: 0JB60ZZ Excision of Chest Subcutaneous Tissue and Fascia, Open Approach (ICD-10-PCS; principal; 2017-07-23 09:00)
PROC: 0J8 Subcutaneous Tissue and Fascia, Division (ICD-10-PCS; principal; 2017-07-23 09:00)
PROC: 2W13X6Z Compression of Abdominal Wall using Pressure Dressing (ICD-10-PCS; principal; 2017-07-23 09:00)
PROC: 0JX60ZC Transfer Chest Subcutaneous Tissue and Fascia with Skin, Subcutaneous Tissue and Fascia, Open Approach (ICD-10-PCS; principal; 2017-07-23 09:00)
PROC: 0JD80ZZ Extraction of Abdomen Subcutaneous Tissue and Fascia, Open Approach (ICD-10-PCS; 2017-07-25)
PROC: 0JDD0ZZ Extraction of Right Upper Arm Subcutaneous Tissue and Fascia, Open Approach (ICD-10-PCS; 2017-07-25)
PROC: 0JXD0ZC Transfer Right Upper Arm Subcutaneous Tissue and Fascia with Skin, Subcutaneous Tissue and Fascia, Open Approach (ICD-10-PCS; 2017-07-25)
PROC: 0JX80ZC Transfer Abdomen Subcutaneous Tissue and Fascia with Skin, Subcutaneous Tissue and Fascia, Open Approach (ICD-10-PCS; 2017-07-25)
DX: L03.311 Cellulitis of abdominal wall (principal); Z68.41 Body mass index [BMI] 40.0-44.9, adult; I47.1 Supraventricular tachycardia; D62 Acute posthemorrhagic anemia; E66.01 Morbid (severe) obesity due to excess calories; I10 Essential (primary) hypertension; L03.111 Cellulitis of right axilla; T83.511A Infection and inflammatory reaction due to indwelling urethral catheter, initial encounter; N39.0 Urinary tract infection, site not specified; L73.2 Hidradenitis suppurativa; K21.9 Gastro-esophageal reflux disease without esophagitis; M79.7 Fibromyalgia; B96.5 Pseudomonas (aeruginosa) (mallei) (pseudomallei) as the cause of diseases classified elsewhere; R06.02 Shortness of breath
CPT/HCPCS: 36415; 71010; 80048; 80053; 80076; 80202; 81003; 81025; 82553; 83605; 83735; 85007; 85025; 86850; 86900; 86901; 87040; 87070; 87086; 87181; 87205; 93005; 93306; 93970; 94003; 94150; 94760; 99285; J2250; J2405; J2710; J2765